=== PATIENT | male | born 1950 | race Caucasian/White ===

== ENCOUNTER → 2023-12-26 11:13 | Outpatient (REF) | payer OTHER, SELFPAY ==
[2023-12-26 13:03] LABS: CEA 2.63 ng/ml
== END ==
LOC: REG 11:13
PROVIDERS: ATTENDING PHYSICIAN Surgery; FAMILY PHYSICIAN Internal Medicine
DX: C18.7 Malignant neoplasm of sigmoid colon (principal)
CPT/HCPCS: 36415; 82378

== ENCOUNTER → 2023-12-31 18:17 | Outpatient (REF) | payer OTHER, SELFPAY | LOC: CLAB 18:17 | PROVIDERS: ATTENDING PHYSICIAN Surgery; FAMILY PHYSICIAN Internal Medicine | DX: C18.7 Malignant neoplasm of sigmoid colon (principal) | CPT/HCPCS: 88305 ==

== ENCOUNTER → 2024-01-05 06:37 | Day surgery (SDC) | payer OTHER, SELFPAY | LOC: GI 06:37 | PROVIDERS: ATTENDING PHYSICIAN Surgery; FAMILY PHYSICIAN Internal Medicine | DX: C18.7 Malignant neoplasm of sigmoid colon (principal); K64.4 Residual hemorrhoidal skin tags; K64.9 Unspecified hemorrhoids; T18.4XXA Foreign body in colon, initial encounter; W44.8XXA Other foreign body entering into or through a natural orifice, initial encounter | CPT/HCPCS: 45378 ==

== ENCOUNTER 2024-01-22 11:08 | Inpatient (IN) | payer OTHER, SELFPAY ==
[2024-01-14 09:50] VITALS: BMI 33.8
[2024-01-14 10:44] LABS: Hematocrit 47.6 % (39.0-52.0); Hemoglobin 15.9 g/dL (13.0-18.0); Mean Corp Hgb Conc. 33.4 g/dL (33.0-37.0); Mean Corpuscular Hgb 28.3 pg (27.0-31.0); Mean Corpuscular Volume 84.8 fL (80.0-94.0); Platelet Count 191 10^3/uL (130-400); Red Blood Cell Count 5.61 10^6/uL (4.70-6.10); Red Cell Dist. Width 15.1 % (11.5-14.5); White Blood Cell Count 7.5 10^3/uL (4.8-10.8)
[2024-01-14 10:58] LABS: INR 1.38; PT 17.1 Sec (11.4-14.6)
[2024-01-14 10:59] LABS: APTT 33.6 Sec (23.4-35.0)
[2024-01-14 11:20] LABS: ALT (SGPT) 28 U/L (0-50); AST (SGOT) 30 U/L (17-59); Albumin 3.9 g/dl (3.5-5.0); Alkaline Phosphatase 92 U/L (38-126); Blood Urea Nitrogen 31 mg/dl (9-20); Calcium 9.7 mg/dl (8.4-10.2); Carbon Dioxide 26 mmol/L (22-30); Chloride 105 mmol/L (98-107); Estimated Creatinine Clearance 59 ml/min; Glucose 106 mg/dl (70-99); Sodium 141 mmol/L (135-145); Total Bilirubin 1.8 mg/dl (0.2-1.3); Total Protein 6.8 g/dl (6.3-8.2); eGFR 49.16
[2024-01-14 12:48] LABS: Glycohemoglobin (HgbA1c) 6.2 % (4.0-5.6)
--- NOTE | 2024-01-14 14:47 | PTCARENOTE ---
Luciana @ Dr. Farrar office notified of patient 01/13 INR 1.38; GFR-49.16
[2024-01-22] VITALS (7 sets, daily range): BP systolic 105–152; BP diastolic 54–79; PULSE 70; BMI 33.8
[2024-01-22] MEDS: TYLENOL 1000 MG PO (11:29)
[2024-01-22] MEDS: LYRICA 150 MG PO (11:29)
[2024-01-22] MEDS: CELEBREX 200 MG PO (11:29)
[2024-01-22] MEDS: ENTEREG 12 MG PO (11:29)
[2024-01-22] MEDS: NORMOSOL-R 1000 IV ×2 (11:30→19:51)
[2024-01-22] MEDS: HEPARIN 5000 UNITS SC (11:30)
--- NOTE | 2024-01-22 19:07 | CON.HOSP ---
Consultation
-
Date/Time Consultation Requested: 01/22/24 7:05PM
Date/Time Consultation Performed: 7:05PM
Requesting Provider: Dr. Hany Kemp
Performing Provider: Dr. Saida Best
Reason for Consultation: medical management post-op
Family Physician
-
Family Physician: Juan Oswald
Chief Complaint
-
post robotic sigmoidectomy
History of Present Illness
Mr. Dennys Peralta is a 73 yo man with hx afib, paroxysmal afib, CAD s/p CABG (11/16), ischemic cardiomyopathy with EF 35%, CKD III, hx CVA post CABG, HLD, BOB, essential HTN who has a diagnosis of both prostate and sigmoid colon cancer and is s/p
robotic sigmoidectomy by Dr. Hany Kemp today.
Patient sees Dr. Pam Ruby and was medically cleared for surgery today.
Patient seen post-op. Per Dr. Kemp, no issues intra-op. He is groggy post anesthesia. He denies pain. He denies chest pain. Denies shortness of breath.
Medical History
Past Medical History
Past Medical History: Reports Other (afib, paroxysmal afib, CAD s/p CABG (11/16), ischemic cardiomyopathy with EF 35%, CKD III, hx CVA post CABG, HLD, BOB, essential HTN)
Past Surgical History: Reports Other (CABG 2012; robotic sigmoidectomy 01/22/24)
Family History
Family History: Reviewed & Not Pertinent
Allergies / Home Medications
Allergies reflects when Allergies were last updated in [facility].
Home Medications with original date entered in [facility]
Allergy/Medication List:
Allergies
Allergy/AdvReac Type Severity Reaction Status Date / Time
No Known Allergies Allergy Verified 01/22/24 11:15
Home Medications
amiodarone 200 mg tablet 200 mg PO DAILY 09/10/18
apixaban 5 mg tablet (Eliquis) 5 mg PO BID 09/10/18
atorvastatin 40 mg tablet 40 mg PO DAILY 09/10/18
carvedilol 6.25 mg tablet 6.25 mg PO BID 09/10/18
furosemide 40 mg tablet 40 mg PO DAILY 09/10/18
pantoprazole 40 mg tablet,delayed release 40 mg PO DAILY 09/10/18
metronidazole 500 mg tablet 500 mg PO PRE OP 01/16/24
neomycin 500 mg tablet 1 g PO PRE OP 01/16/24
sacubitril 49 mg-valsartan 51 mg tablet (Entresto) 1 tab PO BID 01/16/24
sodium sul 1.479 gram-potas ch 0.188 gram-magnes sul 0.225 gram tablet (Sutab) 0 tab PO PRE OP 01/16/24
Review of Systems
-
History Source: Patient
A 12 point Review of Systems was completed except as noted: Yes
Physical Exam
Vital Signs
Vital Signs
Temp Pulse Resp BP Pulse Ox
98 F 66 16 152/79 98
01/22/24 11:21 01/22/24 11:21 01/22/24 11:21 01/22/24 11:21 01/22/24 11:21
Physical Exam
General: No Apparent Distress and Other (patient sedated post anesthesia with oxygen applied; opens eyes to verbal cues and answers questions with yes or no )
HEENT: PERRLA
Respiratory: Clear; Negative Wheezes
Cardiac: S1/S2 and Regular Rhythm
GI: Other (incisions c/d/i)
Skin: Warm and Dry; Negative Rash
Neuro: Sedated
Psych: Calm
Laboratory Results
-
Laboratory Results
01/14/24 09:35
01/14/24 09:35
PT 17.1 Sec (11.4-14.6) H 01/14/24 09:35
INR 1.38 01/14/24 09:35
APTT 33.6 Sec (23.4-35.0) 01/14/24 09:35
Total Bilirubin 1.8 mg/dl (0.2-1.3) H 01/14/24 09:35
AST 30 U/L (17-59) 01/14/24 09:35
ALT 28 U/L (0-50) 01/14/24 09:35
Alkaline Phosphatase 92 U/L (38-126) 01/14/24 09:35
Data Reviewed
-
Diagnostic Radiology: Report Reviewed by Me
Lab Data: Labs Reviewed
Impression / Plan
-
Mr. Dennys Peralta is a 73 yo man with hx paroxysmal afib, CAD s/p CABG (11/16), ischemic cardiomyopathy with EF 35%, CKD III, hx CVA post CABG, HLD, BOB, essential HTN who has a diagnosis of both prostate and sigmoid colon cancer and is s/p
robotic sigmoidectomy by Dr. Hany Kemp today.
Sigmoid Colon Cancer
-admitting to telemetry post-op
-care per CRS
-clears and pills OK
-pain control
Prostate Cancer
Paroxysmal Atrial Fibrillation
-hold Eliquis, resume when OK per CRS
-resume [employer] Coreg
-resume [employer] Amiodarone
Coronary Artery Disease
Hx CABG 10/2017
Ischemic Cardiomyopathy with EF 35%
-resume [employer] Coreg
-monitor on telemetry
-post-op EKG
-hold [employer] Entresto in immediate post-op period
-hold [employer] lasix until diet advanced
-monitor volume status closely
CKD III
-monitor renal status closely
Hx CVA
-resume Eliquis when OK with surgery
HLD
-resume statin when diet resumed
Essential HTN
-resume Coreg
-hold Entresto
--- NOTE | 2024-01-22 19:11 | W.IMMPOSTOP ---
Surgical Immed Post Op Note
-
Primary Surgeon: Hany Kemp MD
Assisting Surgeon: KELLEY Curry
Pre-op Diagnosis: Sigmoid colon cancer
Post-op Diagnosis: Sigmoid colon cancer
Procedure Performed: Robotic sigmoidectomy, lysis of adhesions greater than 30 minutes, mesenteric angiography with ICG, flexible sigmoidoscopy, laparoscopic TAP block
Anesthesia Type: General
Specimen / Cultures: Sigmoid colon, proximal donut (still on anvil), distal donut
IVF: 1.8 L
UOP: 150 mL
Estimated Blood Loss: 50 mL
Complications: None
Operative Findings: Abdomen accessed via Veress needle at Dumont's point, no peritoneal or surface of liver lesions, lysed adhesions from the sigmoid to the left pelvic brim and from the terminal ileum to the right pelvic brim and RLQ; attempted
medial to lateral dissection, but planes difficult to identify due to the adiposity of the mesocolon; took down the lateral attachments of the sigmoid and descending colon midway up the descending colon and mobilized the sigmoid and descending colon
off the retroperitoneum; due to the adiposity of the retroperitoneum, unable to verify the left ureter, but noted a tubular structure in the retroperitoneum that was most likely the ureter and kept this safe; entered the presacral space and
dissected the mesorectum posteriorly just beyond the sacral promontory and superiorly to the ALHAJI; again, due to the adiposity of the mesentery, the ALHAJI was difficult to identify but ultimately was able to identify the ALHAJI taking off from the aorta;
used the robotic stapler with a white load to come across this in a high ligation fashion; freed up more of the mesentery from the retroperitoneum; then dissected the rectosigmoid to just beyond the sacral promontory but above the anterior
reflection; performed flexible sigmoidoscopy and confirmed the location of the clip and the distal tattoo; selected a point 2 to 3 cm distal to the distal tattoo on the rectum and divided with the robotic stapler with a green load; divided the
mesentery to a point on the distal descending colon; performed ICG and discovered that our initial point was ischemic so I selected a transection point a few centimeters proximal and placed a 2-0 Vicryl marking stitch at this point; extracted the
distal colon through the Pfannenstiel and identified the marking stitch; on the ischemic portion, created a colotomy and advanced the anvil with long 2-0 Prolene proximally beyond our transection point; stapled across the distal descending with a
SUKHWINDER 80 with a purple load; pulled through the 2-0 Prolene and seated the anvil at the staple line nicely; cleaned up the intervening mesentery from the staple line; anvil and descending colon was placed back intracorporeally and the abdomen
reinsufflated; passed sizers and then the EEA stapler and performed stapled colorectal EEA stapler anastomosis; negative leak test, intact donuts, intact on flexible sigmoidoscopy; assured hemostasis; performed a laparoscopic tap block injecting 15
mL of Marcaine with dexamethasone bilaterally; closed incisions in usual fashion
[2024-01-22 19:27] LABS: % Basophils 0.2 % (0-2); % Eosinophils 0.1 % (0-6); % Immature Granulocytes 0.3 % (0-0.5); % Lymphocytes 7.1 % (20.5-51.1); % Monocytes 6.7 % (1.7-9.3); % Neutrophils 85.6 % (42.2-75.2); Absolute Lymphocytes 1.1 10^3/uL (1.2-3.4); Absolute Neutrophils 13.3 10^3/uL (1.4-6.5); Hematocrit 42.9 % (39.0-52.0); Hemoglobin 14.4 g/dL (13.0-18.0); Mean Corp Hgb Conc. 33.6 g/dL (33.0-37.0); Mean Corpuscular Hgb 28.2 pg (27.0-31.0); Mean Corpuscular Volume 84.1 fL (80.0-94.0); Mean Platelet Volume 9.4 fL (7.4-10.4); Nucleated Red Blood Cells % 0 % (-); Platelet Count 169 10^3/uL (130-400); White Blood Cell Count 15.6 10^3/uL (4.8-10.8)
[2024-01-22 19:36] LABS: Blood Urea Nitrogen 30 mg/dl (9-20); Calcium 8.4 mg/dl (8.4-10.2); Carbon Dioxide 18 mmol/L (22-30); Chloride 109 mmol/L (98-107); Estimated Creatinine Clearance 59 ml/min; Glucose 123 mg/dl (70-99); Magnesium 2.6 mg/dl (1.6-2.3); Potassium 4.3 mmol/L (3.5-5.1); Sodium 137 mmol/L (135-145); eGFR 49.16
--- NOTE | 2024-01-22 19:36 | OR.RPT ---
Operative Report
Operative Report
DATE OF OPERATION: 01/23/2024
SURGEON: Hany Kemp MD
PREOPERATIVE DIAGNOSIS: Malignant polyp of sigmoid
POSTOPERATIVE DIAGNOSIS: Malignant polyp of sigmoid
OPERATION: Robotic sigmoidectomy, adhesiolysis greater than 30 minutes, mesenteric angiography with ICG, flexible sigmoidoscopy, laparoscopic TAP block
ASSISTANTS:
1. Giacomo BENSON
ANESTHESIA: General
ESTIMATED BLOOD LOSS: 50 mL
IVF: 1.8 L
URINE OUTPUT: 150 mL
FINDINGS:
1. No concerning peritoneal lesions or lesions on the surface of the liver noted
2. Identified proximal and distal tattoo; divided distally 2 to 3 cm below distal tattoo; performed EEA stapled anastomosis; negative leak test, intact donuts x 2, anastomosis intact on flexible sigmoidoscopy
SPECIMENS:
1. Sigmoid colon
2. Proximal donut on anvil
3. Distal donut
DRAINS: None
COMPLICATIONS: No immediate complications.
INDICATIONS: The patient is a 73-year-old male who was recently discovered to have prostate cancer in Sep 2023. Prior to undergoing radiation therapy, he was recommended to undergo a colonoscopy. On 12/04/23, he underwent a colonoscopy with the
discovery of a 2.5 cm polyp in the mid sigmoid. An EMR and piecemeal removal of the polyp was performed, which came back moderately differentiated adenocarcinoma, RUDDY, tumor at the margins. After a tumor board discussion, the decision was made to
move forward with colectomy for the colon cancer, and eventual low-dose radiation with brachytherapy for the prostate cancer. The operation was discussed with the patient in detail, including the risks, benefits and alternatives. Risks described
included, but not limited to, bleeding, infection, anastomotic leak, damage to nearby structures (i.e.- ureter, bowel, solid organs), incisional hernia, need for ostomy creation, conversion to open, inability to remove the entire cancer, recurrence
or metastasis and anesthetic risks, including but not limited to VA, stroke, DVT/PE and respiratory failure. The patient understood and agreed to proceed.
PROCEDURE IN DETAIL: The patient was taken to the operating room and placed on the operating table in supine position. Sequential compression devices were placed bilaterally. General anesthesia was then induced and the patient was intubated without
complication. The patient was then placed in lithotomy position with both arms tucked. Del Real catheter was placed with sterile technique. The abdomen was then shaved, prepped and draped in a sterile fashion. A time-out was then performed verifying
the correct patient, procedure, operative site, positioning, and special equipment. Anesthesia placed an orogastric tube. Preoperative antibiotics were given. A marking pen was used to daya out the midline.
An 8 mm incision at Dumont's point was made with an 11 blade scalpel. A Veress needle was used to gain abdominal access. After 3 clicks, the insufflation was connected to the Veress needle and the opening pressure was noted to be less than 8 mmHg.
The abdomen was then insufflated to a pressure of 12 mmHg. An 8 mm robotic trocar was then inserted. The robotic camera was advanced and intra-abdominal placement was confirmed. The abdomen was examined. No injuries were noted from port entry or
from the Veress needle. No concerning lesions were noted on the surface of the liver or the peritoneum. The tattoo of the sigmoid was not immediately visible. The remaining three 8mm robotic ports were placed under direct visualization in a
diagonal fashion from Dumont's point to the right lower quadrant, as well as an 8mm assist port in the right lateral mid abdomen, taking care to avoid injury to the right epigastric vessels. The left upper quadrant port was changed to the air seal
port.
A 4 cm Pfannenstiel incision was created 2 fingerbreadths above the pubic symphysis. This was carried down to the anterior fascia with electrocautery and hemostasis was assured. The fascia was then incised to just beyond the length of the skin
incision. The fascia was grasped with Macarena's and elevated. The adhesions to the anterior fascia were taken down bluntly from the rectus abdominis muscle and the midline attachment was taken down with electrocautery. This was performed both
superiorly and inferiorly to our incision. The rectus was then split along the midline, first scoring the linea alba with electrocautery, then bluntly spitting with a Ngoc clamp to reveal the peritoneum, which was grasped and elevated with Kellys.
The peritoneum was then incised with Metzenbaum scissors, taking care to avoid injury to intraperitoneal structures. The peritoneum was then incised cranially and caudally to the greatest extent that our incision would allow, taking care to avoid
injury to the bladder. A small Tim with port cap was placed and a robotic 12 mm port was placed through the port cap. Then, the patient was placed in 25 degrees trendelenburg and 14 degrees [id number] (due to the tucking of the arms,
neutral was at about 4 degrees [id number]). The robot was docked from the patient's right side. From the RLQ to Dumont's point, the instruments introduced were the scissers, camera, bipolar grasper, and tip up grasper, respectively.
The small bowel was retracted out of the pelvis and towards the right upper quadrant. Some adhesions were noted from the left pelvic sidewall to the sigmoid colon, which were taken down with electrocautery. Additionally, there were adhesions from
the terminal ileum to the right pelvic brim/RLQ, which were taken down with a combination of electrocautery and scissors. The sigmoid was then grasped and elevated to commence a medial to lateral dissection. The peritoneum overlying the sacral
promontory was scored and entered. Due to the amount of adiposity in the retroperitoneum, it was difficult to obtain the correct plane. Therefore, I turned to a lateral to medial approach. I retracted the sigmoid towards the RUQ and mobilized the
mesocolon from the retroperitoneum, taking care to avoid injury to the kidney and left ureter. Again, due to the adiposity in the retroperitoneum, the left ureter was difficult to confirm, but a tubular structure was identified that was most likely
the left ureter and this was kept safe from the dissection. I continued this mobilization up to the proximal descending colon. I turned back to the medial to lateral approach. I was able to identify the presacral space and connected this to my
lateral dissection. I continued the dissection inferiorly, posteriorly to the rectum in the presacral plane, and took this to just beyond the sacral promontory, taking care to avoid injury to the hypogastric nerves. I used the vessel sealer to
connect the posterior dissection to the right lateral dissection in order to further mobilize the rectosigmoid junction. I retracted the rectosigmoid junction to the patient's right, and then scored the left lateral peritoneum and used the vessel
sealer to divide the lateral stalk to the same point as my right lateral dissection. Then, I took this dissection up to the ALHAJI pedicle, which was difficult to identify due to the amount of adiposity in the retroperitoneum and mesocolon. However,
I was able to elevate this and identify its takeoff from the aorta. Due to the thickness of the ALHAJI and likely calcifications, I elected to divide the ALHAJI with a white load of the robotic stapler. I upsized the RLQ port to a 12 mm port and divided
the ALHAJI close to its takeoff. The ALHAJI stump was completely hemostatic. I mobilized some more mesentery from the retroperitoneum, connecting to my previous lateral dissection. I encountered an additional vessel in the mesentery close to the divided
ALHAJI pedicle, which appeared to be the IMV. It was placing tension on my potential proximal transection point. Therefore, I divided this with the vessel sealer.
I then turned my attention to the distal transection point. While my assistant to the director placed traction on the rectosigmoid, I went below and advanced a flexible sigmoidoscopy to locate the distal tattoo. I was able to identify the clip placed at the
location of the polypectomy site as well as the distal tattoo. I confirmed a point on the rectum that was about 2 to 3 cm distal to the distal tattoo on the proximal rectum. I removed the flexible sigmoidoscopy and went back on the robotic
console. I retracted the rectosigmoid anteriorly again, and then created a tunnel through the mesorectum at my proposed transection point on the rectum, which was at about 14-15 cm proximal to the anal verge. I divided the mesorectum with the
vessel-sealer. I divided the rectum with the green load of the 60 mm robotic stapler.
For my proximal transection point, I assessed the sigmoid and distal descending colon. I selected a point about 5�7cm proximal to the proximal tattoo. I elevated the colon at this point with my tip up grasper. I fanned out the mesentery from the
divided ALHAJI stump. I ligated the mesentery from this spot to my transection point on the the descending colon. I elected to proceed with an end-to-end stapled anastomosis with EEA stapler, but would extracorporealize the specimen prior to division
to secure the anvil. I asked anesthesia to inject 2.5 mg of ICG. My elected transection point did appear ischemic, so moved 3 to 4 cm proximal where there was good perfusion and cleared up the mesentery at this point. I placed a 2-0 Vicryl marking
stitch at this point. I then undocked 2 arms and removed the port cap. Due to the bulk of the colon and mesentery, I lengthened the Pfannenstiel incision to 6 cm. I pulled the sigmoid and descending colon through the Pfannenstiel incision. I
identified my marking stitch, cleared up the mesentery at this point and then created a colotomy more distal in the devascularized segment. I advanced the anvil with a long 2-0 Prolene secured to the tip through the colotomy and beyond the proximal
transection point. I closed the colotomy using Allis clamps. I then divided at my proximal transection point with the SUKHWINDER 80 mm stapler with purple load. I grasped the Prolene stitch and pulled the anvil through the staple line. The sigmoid
colon was passed off as specimen. I cleaned up the staple line from intervening mesentery and fat. The anvil was seated along the staple line nicely without intervening diverticula or mesentery. This was then placed back intracorporeally. The
port cap was replaced, the abdomen insufflated and the robot redocked.
I checked the reach of the proposed anastomosis and it was more than adequate. The operative field was surveyed and hemostasis was ensured. Then, sizers were passed up the rectum to ensure adequate circumference and length. There was a small ooze
from the rectal staple line on the mesenteric aspect, which was easily controlled with the bipolar grasper. The EEA stapler was passed transanally to the distal staple line. The pin was extended and was connected with the anvil. After ensuring
there was no twist to the mesentery and there was no tension, the EEA stapler was then closed for 1 minute and then fired. Both donuts were intact. A leak test was performed by filling the pelvis with saline, occluding the proximal lumen and
insufflating with the flexible sigmoidoscope. There was no evidence of leak from the anastomosis. Endoscopically, the anastomosis was intact without evidence of bleeding. The colorectum was desufflated and the flexible sigmoidoscope removed. The
donuts were passed off as specimen.
The robotic instruments were removed and the robot was undocked. Using laparoscopic visualization, a TAP block was performed using a total of 30 mL of 0.25% Marcaine mixed with dexamethasone and injecting in the transverse abdominis plane
bilaterally. The right lower quadrant 12mm port was closed with a Esteban-Hough and an 0-vicryl. The remaining ports were removed under direct visualization and no bleeding was noted. The Pfannenstiel incision was then closed in layers. First,
the peritoneum was closed with a running 0-Vicryl stitch. Then, the anterior fascia was closed using a #1 Stratafix suture. The incisions were then irrigated. Another 30 cc of 0.25% Marcaine mixed with dexamethasone were injected around the
incisions. The incisions were then closed with running subcuticular 4-0 Monocryl and dressed with Dermabond.
At this point, the procedure was complete. The patient was awoken and extubated without complication. All needle, sponge and instrument counts were reported as correct. The patient tolerated the procedure well and was transferred to the recovery
room in stable condition with the Del Real in place.
DICTATED BY: Hany Kemp MD
[2024-01-22] MEDS: DILAUDID 0.25 MG IV (19:52)
--- NOTE | 2024-01-22 20:18 | PTCARENOTE ---
Patient arrived from PACU @20:18 on 3L O2, IVF infusing, cruz catheter with elizabeth/yellow urine, VSS; patient placed on telemetry and continous pulse ox; admission history completed with patient; RT will deliver CPAP.
[2024-01-22] MEDS: COREG 6.25 MG PO (21:30)
[2024-01-23] VITALS (8 sets, daily range): BP systolic 99–149; BP diastolic 53–85; PULSE 77; O2SAT 98; BMI 33.8
[2024-01-23] MEDS: TYLENOL 1000 MG PO ×4 (00:32→18:12)
[2024-01-23 05:19] LABS: % Immature Granulocytes 0.3 % (0-0.5); % Lymphocytes 4.6 % (20.5-51.1); % Monocytes 3.3 % (1.7-9.3); % Neutrophils 91.8 % (42.2-75.2); Absolute Lymphocytes 0.6 10^3/uL (1.2-3.4); Absolute Monocytes 0.4 10^3/uL (0.1-0.6); Absolute Neutrophils 11.6 10^3/uL (1.4-6.5); Hematocrit 40.3 % (39.0-52.0); Hemoglobin 13.6 g/dL (13.0-18.0); Mean Corp Hgb Conc. 33.7 g/dL (33.0-37.0); Mean Corpuscular Hgb 28.2 pg (27.0-31.0); Mean Corpuscular Volume 83.4 fL (80.0-94.0); Mean Platelet Volume 9.5 fL (7.4-10.4); Nucleated Red Blood Cells % 0 % (-); Platelet Count 144 10^3/uL (130-400); Red Blood Cell Count 4.83 10^6/uL (4.70-6.10); Red Cell Dist. Width 15.3 % (11.5-14.5); White Blood Cell Count 12.6 10^3/uL (4.8-10.8)
[2024-01-23 05:50] LABS: Blood Urea Nitrogen 32 mg/dl (9-20); Calcium 7.7 mg/dl (8.4-10.2); Carbon Dioxide 19 mmol/L (22-30); Chloride 105 mmol/L (98-107); Estimated Creatinine Clearance 64 ml/min; Glucose 129 mg/dl (70-99); Magnesium 2.8 mg/dl (1.6-2.3); Potassium 4.4 mmol/L (3.5-5.1); Sodium 138 mmol/L (135-145)
[2024-01-23] MEDS: COREG 6.25 MG PO ×2 (09:22→22:49)
[2024-01-23] MEDS: LIPITOR 40 MG PO (09:23)
[2024-01-23] MEDS: PACERONE 200 MG PO (09:23)
[2024-01-23] MEDS: PROTONIX 40 MG PO (09:23)
[2024-01-23] MEDS: ENTEREG 12 MG PO ×2 (09:23→19:45)
--- NOTE | 2024-01-23 09:54 | CON.CAR ---
Addendum entered and electronically signed by Mikel Love MD 01/23/24 12:32:
Pleasant 73-year-old man who underwent a robotic sigmoid colectomy on 523. We are asked to review for postoperative management. Currently sitting in chair, with daughter at bedside, offers no complaints, diet currently being advanced
PMH: CABG 2018, MRI conditional [employer] ICD, ischemic cardiomyopathy EF 35%, paroxysmal atrial fibrillation on amiodarone, CKD stage III, remote CVA, hypercholesterolemia, hypertension, prediabetes, sleep apnea, prostate cancer with recent
positive biopsy.
PSH: As above
SH:
Allergies none
Outpatient medications reviewed
ROS: Negative except as above
140/68, pulse 74, respiratory rate 18, afebrile
Pleasant no distress, head neck exam unremarkable, lungs clear, regular rate and rhythm,No murmurs JVD okay, abdomen obese, extremities without edema, Cruz in place
White count 12.6, hemoglobin 13.6, BUN and creatinine 32 and 1.4, potassium 4.4
Postop EKG AV paced with biventricular ICD
Assessment:
Rectosigmoid colon mass status post robotic sigmoid colectomy with lysis of adhesions 01/22/24
Leukocytosis
Prostate cancer
Paroxysmal atrial fibrillation
Chronic amiodarone therapy
Chronic Eliquis therapy
Ischemic dilated cardiomyopathy with EF 35%
Status post [employer] ICD, MRI conditional
CAD status post CABG x 4 in 2018
CKD stage III
History of rectal bleeding
history of stroke
Dyslipidemia
Hypertension
Prediabetes
BOB
Echo 05/20/2023: EF 35%, mild global hypokinesis, moderate to severe hypokinesis in the basal to mid posterior lateral wall and mid inferior wall and inferoseptum, Definity used, trace MR, trace TR, PAP 20 to 24 mmHg
Plan:
He appears stable from a cardiac standpoint. As he progresses we will restart Entresto, Eliquis as blood pressure and postoperative status permits.
From cardiac standpoint will likely be ready for discharge in 24 to 48 hours. Okay to proceed with discharge planning.
Original Note:
Consultation
Consultation Request
Date/Time Consultation Performed: 01/23/24
Requesting Provider: Dr. Kemp
Performing Provider: Sherry Steel PA-C for Dr. KAYLA Love
Reason for Consultation: post op mgmt
Medical History
-
Chief Complaint: robotic colectomy, sigmoid colon mass
History of Present Illness:
Patient is a 73-year-old male with past medical history of paroxysmal atrial fibrillation maintained on chronic Coreg, amiodarone, Eliquis, ischemic dilated cardiomyopathy with EF 35% status post [employer] ICD, MRI conditional, CAD status
post CABG x 4 in 2018, CKD stage III, history of rectal bleeding, history of stroke, dyslipidemia, BOB, prediabetes, hypertension. He had elevated PSA and underwent prostate biopsy positive for cancer. He then underwent colonoscopy prior to
radiation therapy for prostate cancer which showed evidence of rectosigmoid cancer. He underwent robotic sigmoid colectomy 01/22/2024. Cardiology consulted for assistance with postoperative management. He is feeling well without complaints of
chest pain, shortness of breath. Reports his pain is manageable. EKG AV paced rhythm
PMH:
Prostate cancer
Paroxysmal atrial fibrillation
Chronic amiodarone therapy
Chronic Eliquis therapy
Ischemic dilated cardiomyopathy with EF 35%
Status post [employer] ICD, MRI conditional
CAD status post CABG x 4 in 2018
CKD stage III
History of rectal bleeding
history of stroke
Dyslipidemia
Hypertension
Prediabetes
BOB
Past Medical History
Past Medical History: Other (in HPI)
Social History
Tobacco: Non-Smoker
Allergies / Home Medications
Allergy/AdvReac Type Severity Reaction Status Date / Time
No Known Allergies Allergy Verified 01/22/24 11:15
�Medication �Instructions �Recorded �Confirmed �Type
amiodarone 200 mg tablet 200 mg PO DAILY 09/10/18 01/22/24 History
apixaban 5 mg tablet (Eliquis) 5 mg PO BID 09/10/18 01/22/24 History
atorvastatin 40 mg tablet 40 mg PO DAILY 09/10/18 01/22/24 History
carvedilol 6.25 mg tablet 6.25 mg PO BID 09/10/18 01/22/24 History
furosemide 40 mg tablet 40 mg PO DAILY 09/10/18 01/22/24 History
pantoprazole 40 mg tablet,delayed 40 mg PO DAILY 09/10/18 01/22/24 History
release
metronidazole 500 mg tablet 500 mg PO PRE OP 01/16/24 01/22/24 History
neomycin 500 mg tablet 1 g PO PRE OP 01/16/24 01/22/24 History
sacubitril 49 mg-valsartan 51 mg 1 tab PO BID 01/16/24 01/22/24 History
tablet (Entresto)
sodium sul 1.479 gram-potas ch 0 tab PO PRE OP 01/16/24 01/22/24 History
0.188 gram-magnes sul 0.225 gram
tablet (Sutab)
Review of Systems
-
History Source: Patient
All other systems: Negative unless noted
Physical Exam
Vital Signs
Temp Pulse Resp BP Pulse Ox
97.6 F 74 18 140/68 96
01/23/24 07:00 01/23/24 07:00 01/23/24 07:00 01/23/24 07:00 01/23/24 07:00
Lab Results
01/23/24 04:41
01/23/24 04:41
Physical Exam
General: No Apparent Distress, Comfortable and Other (sitting in chair. obese)
HEENT: Normocephalic, Anicteric and Moist Mucous Membranes
Respiratory: Clear and Non Labored Respirations
Cardiac: S1/S2 and Regular Rhythm
GI: Soft, Non Tender and Other (hypoactive bowel sounds)
Genito-urinary: Other (cruz)
Musculoskeletal: No Clubbing, No Cyanosis and No Edema
Skin: Warm and Dry
Neuro: AO x 3
Impression / Plan
-
Primary Inside Trucker: Dr. Ruby
Assessment:
Rectosigmoid colon mass status post robotic sigmoid colectomy with lysis of adhesions 01/22/24
Leukocytosis
Prostate cancer
Paroxysmal atrial fibrillation
Chronic amiodarone therapy
Chronic Eliquis therapy
Ischemic dilated cardiomyopathy with EF 35%
Status post [employer] ICD, MRI conditional
CAD status post CABG x 4 in 2018
CKD stage III
History of rectal bleeding
history of stroke
Dyslipidemia
Hypertension
Prediabetes
BOB
Echo 05/20/2023: EF 35%, mild global hypokinesis, moderate to severe hypokinesis in the basal to mid posterior lateral wall and mid inferior wall and inferoseptum, Definity used, trace MR, trace TR, PAP 20 to 24 mmHg
Plan:
-Patient is status post robotic sigmoid colectomy 01/22/2024
-Doing well. No complaints of chest pain, shortness of breath
-In AV paced rhythm on review of telemetry. Continue outpatient Coreg and amiodarone. QTc is slightly more prolonged compared to preop EKG, will repeat in a.m. and follow
-Outpatient Eliquis on hold with recent surgery. Would resume when okay per surgical team
-Follow blood pressure trends. Would resume Entresto and outpatient Lasix as blood pressure tolerates in next 24 to 48 hours. Creatinine stable at 1.4. Without evidence of volume overload at present
-Echocardiogram from 2022 with results as above, EF 35%
-Hemoglobin stable
-Continue postoperative care
-Out of bed/IS encouraged
Data Reviewed
-
EKG: Tracing Personally Visualized and interpreted
Medical Tests (Nuc Med, Echo etc): Report Reviewed by me
Labs: Labs Reviewed by me
Old Records: Reviewed
--- NOTE | 2024-01-23 09:56 | W.PN.CRS1 ---
Today's Communication / Plan
-
regular
d/c cruz
oob
lovenox
Assessment/Plan
-
Robotic sigmoidectomy
1. Vitals and labs normal.
2. OOB as tolerated.
3. Okay to shower.
4. Start Lovenox tonight for DVT prophylaxis.
5. D/C cruz.
6. Advance diet to regular.
7. Continue to hold Eliquis until Friday, then can resume.
8. OR pathology pending.
9. Pain medication: Tylenol standing, Dilaudid PRN.
10. Possible d/c tomorrow if doing well.
Subjective Data
Procedure
01/22/2024-, lysis of adhesions greater than 30 minutes, mesenteric angiography with ICG, flexible sigmoidoscopy, laparoscopic TAP block
Subjective Data
Date of Service: January 23, 2024
Patient states he feels well this morning. He has been walking around the [employer]. He denies nausea or vomiting. He has been drinking clears. He has minimal pain. He denies nausea or vomiting.
Objective Data
-
Vital Signs
Temp Pulse Resp BP Pulse Ox
97.6 F 74 18 140/68 96
01/23/24 07:00 01/23/24 07:00 01/23/24 07:00 01/23/24 07:00 01/23/24 07:00
Intake & Output
01/22/24 01/23/24 01/24/24
06:59 06:59 06:59
Intake Total 890 / 890
Output Total 880 / 880
Balance
Intake:
Oral fluids 240 / 240
IV fluids (Total) 650 / 650
normosol 150 / 150
Output:
Urine, Cruz 880 / 880
Lab Results
01/23/24 04:41
01/23/24 04:41
Physical Exam
-
General: No Acute Distress and AOx3
Abdomen: Soft, Non Distended and Non Tender
Skin: Warm and Dry
Incision: Clear, Dry, Intact
--- NOTE | 2024-01-23 10:13 | W.PN.HOSP.TC ---
Today's Communication/Plan
-
Resume Lasix
Hold Entresto - start in 24-48 hours
Restart Eliquis once OK by surgery
ADAT
Assessment / Plan
Assessment / Plan
General: No Apparent Distress
HEENT: PERRLA
Respiratory: Clear; Negative Wheezes
Cardiac: S1/S2 and Regular Rhythm
GI: Other (incisions c/d/i)
Skin: Warm and Dry; Negative Rash
Neuro: Sedated
Psych: Calm
Mr. Dennys Peralta is a 73 yo man with hx paroxysmal afib, CAD s/p CABG (11/16), ischemic cardiomyopathy with EF 35%, CKD III, hx CVA post CABG, HLD, BOB, essential HTN who has a diagnosis of both prostate and sigmoid colon cancer and is s/p
robotic sigmoidectomy by Dr. Hany Kemp 01/21.
Sigmoid Colon Cancer
-care per CRS
-clears and pills OK; advance as tolerated by surgery
-pain control
Prostate Cancer
Paroxysmal Atrial Fibrillation
-hold Eliquis, resume when OK per CRS
-Coreg
-Amiodarone
Coronary Artery Disease
Hx CABG 10/2017
Ischemic Cardiomyopathy with EF 35%
-Coreg
-monitor on telemetry
-post-op EKG
-hold NURSES AIDE Entresto in immediate post-op period - possible restart 24-48 hours
-Restart Lasix today
-monitor volume status closely
CKD III
-monitor renal status closely
Hx CVA
-resume Eliquis when OK with surgery
HLD
-resume statin when diet resumed
Essential HTN
-resume Coreg
-hold Entresto 24-48 hours
SCDs - Start Eliquis once OK by Surgery
Anticipated Discharge: 24 - 48 hours
Subjective/Interval History
-
Date of Service: January 23, 2024
No acute events, tolerating clear liquid diet
Objective Data
-
Labs:
Laboratory Results
01/23/24
04:41
WBC 12.6 H
Hgb 13.6
Hct 40.3
Plt Count 144
Sodium 138
Potassium 4.4
Chloride 105
Carbon Dioxide 19 L
BUN 32 H
Creatinine 1.4 H
Glucose 129 H
Calcium 7.7 L
Vital Signs:
Vital Signs
Temp Pulse Resp BP Pulse Ox
97.6 F 74 18 140/68 96
01/23/24 07:00 01/23/24 07:00 01/23/24 07:00 01/23/24 07:00 01/23/24 07:00
I&O
01/22/24 01/23/24 01/24/24
06:59 06:59 06:59
Intake Total 890 / 890
Output Total 880 / 880
Balance
Review of Systems
-
History Source: Patient
All other systems: Not reviewed unless documented
Data Reviewed
-
Diagnostic Radiology: Image personally visualized and interpreted and Report Reviewed by me
--- NOTE | 2024-01-23 12:17 | CM ---
Met patient and dgtr in room. Patient independent in home and community. He drives . He does not expect to need any services at discharge. He lives alone in multi level home. He walked the unit with PT today without device.
Plan is to take out cruz Friday.
PCP Dr. Juan Oswald
PHarmacy: [facility].
Dgtr is very supportive and lives close by.
PLAN:Home no needs.
[2024-01-23] MEDS: LASIX 40 MG PO (12:48)
[2024-01-23] MEDS: NORMOSOL-R IV (12:48)
[2024-01-23] MEDS: HEPARIN 5000 UNITS SC (19:46)
[2024-01-24] MEDS: TYLENOL PO ×2 (02:22→07:00)
[2024-01-24 05:22] LABS: Hematocrit 36.5 % (39.0-52.0); Hemoglobin 12.6 g/dL (13.0-18.0); Mean Corp Hgb Conc. 34.5 g/dL (33.0-37.0); Mean Corpuscular Hgb 28.2 pg (27.0-31.0); Mean Corpuscular Volume 81.7 fL (80.0-94.0); Mean Platelet Volume 9.6 fL (7.4-10.4); Platelet Count 133 10^3/uL (130-400); Red Blood Cell Count 4.47 10^6/uL (4.70-6.10); Red Cell Dist. Width 15.5 % (11.5-14.5); White Blood Cell Count 11.4 10^3/uL (4.8-10.8)
[2024-01-24 05:48] LABS: Blood Urea Nitrogen 40 mg/dl (9-20); Calcium 8.3 mg/dl (8.4-10.2); Carbon Dioxide 23 mmol/L (22-30); Chloride 104 mmol/L (98-107); Estimated Creatinine Clearance 56 ml/min; Glucose 104 mg/dl (70-99); Potassium 3.8 mmol/L (3.5-5.1); Sodium 137 mmol/L (135-145)
[2024-01-24 06:00] VITALS: BMI 33.5
[2024-01-24 07:25] VITALS: BP 129/70
[2024-01-24] MEDS: PROTONIX 40 MG PO (08:02)
[2024-01-24] MEDS: ENTEREG 12 MG PO (08:02)
[2024-01-24] MEDS: PACERONE 200 MG PO (08:02)
[2024-01-24] MEDS: LIPITOR 40 MG PO (08:02)
[2024-01-24] MEDS: LASIX 40 MG PO (08:02)
[2024-01-24] MEDS: HEPARIN 5000 UNITS SC (08:03)
[2024-01-24] MEDS: COREG 6.25 MG PO (08:09)
--- NOTE | 2024-01-24 11:57 | W.PN.CARDCBS ---
Today's Communication / Plan
-
Okay for discharge from cardiac standpoint
Follow-up arrangements in place
Please check BMP in 1 week
See below for meds
Impression / Plan
-
Primary Robotic Weld Technician: Dr. Ruby
Assessment:
Rectosigmoid colon mass status post robotic sigmoid colectomy with lysis of adhesions 01/22/24
Leukocytosis
Prostate cancer
Paroxysmal atrial fibrillation
Chronic amiodarone therapy
Chronic Eliquis therapy
Ischemic dilated cardiomyopathy with EF 35%
Status post [employer] ICD, MRI conditional
CAD status post CABG x 4 in 2018
CKD stage III
History of rectal bleeding
history of stroke
Dyslipidemia
Hypertension
Prediabetes
BOB
Echo 05/20/2023: EF 35%, mild global hypokinesis, moderate to severe hypokinesis in the basal to mid posterior lateral wall and mid inferior wall and inferoseptum, Definity used, trace MR, trace TR, PAP 20 to 24 mmHg
Plan:
He looks well, and okay to proceed with discharge planning from cardiac standpoint.
He is on most of his preadmission medications. Not yet restarted - Entresto and Eliquis.
Restart Eliquis when okay from surgical standpoint.
I would restart Entresto on January 26.
Would not object to discharge later today or tomorrow if okay from surgical standpoint.
Recommended cardiac medications at discharge:
Amiodarone 200 mg a day
Atorvastatin 40 mg a day
Carvedilol 6.25 mg twice daily
Eliquis 5 mg twice daily when okay with surgery
Furosemide 40 mg a day
Entresto 49/51 twice daily starting on January 26
Please check BMP in 1 week
Cardiac follow-up in place
Progress Note - Robotic Weld Technician
Subjective
Date of Service: January 24, 2024:
PMH/PSH/SH/FH: Reviewed
Allergies: None
Outpatient medications: Reviewed, carvedilol 6.25 twice daily, amiodarone 200 mg a day, atorvastatin 40 mg a day, Eliquis 5 mg twice daily, furosemide 40 mg a day, Entresto twice daily
Current medications carvedilol 6.25 twice daily, amiodarone 200 mg a day, atorvastatin 40 mg a day, furosemide 40 mg a day, subcu heparin, Entresto and Eliquis are currently on hold
ROS: Negative except as above
129/70, pulse 72, afebrile sats 96% weight is 115.3 kg, down 0.8 kg
No distress, head neck exam unremarkable, lungs are clear, regular rate and rhythm without murmurs JVD okay, abdomen benign, trace to 1+ edema, neuro nonfocal, musculoskeletal intact
White count is 11.4, hemoglobin 12.6, BUN and creatinine are 40 and 1.6, creatinine had been 1.4-1.5
Objective
Labs:
01/24/24 04:38
01/24/24 04:38
Labs
Hgb 12.6 g/dL (13.0-18.0) L 01/24/24 04:38
Hct 36.5 % (39.0-52.0) L 01/24/24 04:38
Plt Count 133 10^3/uL (130-400) 01/24/24 04:38
PT 17.1 Sec (11.4-14.6) H 01/14/24 09:35
INR 1.38 01/14/24 09:35
APTT 33.6 Sec (23.4-35.0) 01/14/24 09:35
Sodium 137 mmol/L (135-145) 01/24/24 04:38
Potassium 3.8 mmol/L (3.5-5.1) 01/24/24 04:38
BUN 40 mg/dl (9-20) H 01/24/24 04:38
Creatinine 1.6 mg/dL (0.7-1.3) H 01/24/24 04:38
Glucose 104 mg/dl (70-99) H 01/24/24 04:38
Vital Signs and I&O:
Vital Signs
Temp Pulse Resp BP Pulse Ox
36.3 C 72 16 129/70 96
01/24/24 07:25 01/24/24 07:25 01/24/24 07:25 01/24/24 07:25 01/24/24 07:56
Vital Signs
Temp Pulse Resp BP Pulse Ox
36.3 C 72 16 129/70 96
01/24/24 07:25 01/24/24 07:25 01/24/24 07:25 01/24/24 07:25 01/24/24 07:56
Intake & Output
01/22/24 01/23/24 01/24/24 01/25/24
07:59 07:59 07:59 07:59
Intake Total 890 / 890 830 / 830
Output Total 880 / 880 1460 / 1460
Balance - / -630
Physical Exam
Physical Exam
See above
[2024-01-24] MEDS: TYLENOL 1000 MG PO (12:02)
--- NOTE | 2024-01-24 12:38 | W.PN.HOSP.TC ---
Today's Communication/Plan
-
restart entresto within 24 hours; restart Eliquis as per surgery
rest of care including dc planning, per surgery
Assessment / Plan
Assessment / Plan
General: No Apparent Distress
HEENT: PERRLA
Respiratory: Clear; Negative Wheezes
Cardiac: S1/S2 and Regular Rhythm
GI: Other (incisions c/d/i)
Skin: Warm and Dry; Negative Rash
Neuro: Sedated
Psych: Calm
Mr. Dennys Peralta is a 73 yo man with hx paroxysmal afib, CAD s/p CABG (11/16), ischemic cardiomyopathy with EF 35%, CKD III, hx CVA post CABG, HLD, BOB, essential HTN who has a diagnosis of both prostate and sigmoid colon cancer and is s/p
robotic sigmoidectomy by Dr. Hany Kemp 01/21.
Sigmoid Colon Cancer
-care per CRS
-clears and pills OK; advance as tolerated by surgery
-pain control
Prostate Cancer
Paroxysmal Atrial Fibrillation
-hold Eliquis, resume when OK per CRS
-Coreg
-Amiodarone
Coronary Artery Disease
Hx CABG 10/2017
Ischemic Cardiomyopathy with EF 35%
-Coreg
-monitor on telemetry
-post-op EKG
-hold CYTOLOGY TECHNOLOGIST Entresto in immediate post-op period - possible restart 24-48 hours
-Restarted Lasix
-monitor volume status closely
CKD III
-monitor renal status closely
Hx CVA
-resume Eliquis when OK with surgery
HLD
-resume statin when diet resumed
Essential HTN
-resume Coreg
-hold Entresto 24 hours
SCDs - Start Eliquis once OK by Surgery; HSQ for now
Anticipated Discharge: Within 24 hours
Subjective/Interval History
-
Date of Service: January 24, 2024
tolerating diet, some loose bms
Objective Data
-
Labs:
Laboratory Results
01/24/24
04:38
WBC 11.4 H
Hgb 12.6 L
Hct 36.5 L
Plt Count 133
Sodium 137
Potassium 3.8
Chloride 104
Carbon Dioxide 23
BUN 40 H
Creatinine 1.6 H
Glucose 104 H
Calcium 8.3 L
Vital Signs:
Vital Signs
Temp Pulse Resp BP Pulse Ox
97.4 F 72 16 129/70 96
01/24/24 07:25 01/24/24 07:25 01/24/24 07:25 01/24/24 07:25 01/24/24 07:56
I&O
01/23/24 01/24/24 01/25/24
06:59 06:59 06:59
Intake Total 890 / 890 830 / 830
Output Total 880 / 880 1460 / 1460
Balance -630 / -630
Review of Systems
-
History Source: Patient
All other systems: Not reviewed unless documented
Data Reviewed
-
Diagnostic Radiology: Image personally visualized and interpreted and Report Reviewed by me
--- NOTE | 2024-01-24 14:06 | W.PN.CRS1 ---
Addendum entered and electronically signed by Justus Gutierrez MD 01/24/24 14:45:
I saw and examined the patient.
The Soda Drier Feeder's note was reviewed and I agree with the note.
Comment: No complaints, meets criteria for DC. Exam approp, incisions cdi. He will stay with daughter courtney as a precaution.
Original Note:
Today's Communication / Plan
-
Dispo planning
Assessment/Plan
-
73-year-old male with PMH of A-fib (on Eliquis�holding), ICM (EF 35%), CAD (s/p CABG C/B CVA and 2018), CKD stage III, HLD, HTN, BOB (on home CPAP), prediabetes with prostate cancer on hormonal therapy and prior to receiving radiation, underwent a
colonoscopy to find a malignant polyp in the sigmoid; presented this admission for elective colectomy
POD 2 robotic sigmoidectomy with stapled EEA anastomosis, tap block
AFVSS
Labs stable with mild acute post operative anemia secondary to intraoperative losses/hemodilution
Voiding s/p cruz removal
Passing flatus/stools
� Continue regular diet
� Pain control with ATC Tylenol and PRN oxycodone
� Will start DVT PPx with subQ heparin; okay to restart Eliquis on POD 3 if no evidence of bleeding
� OOB/IS
� Appreciate cardiology, following postoperatively; follow up planned in 1 week as OP
�Appreciate hospitalist for comorbidities
D/C to home with family
Subjective Data
Procedure
01/22/2024- Robotic sigmoidectomy, lysis of adhesions greater than 30 minutes, mesenteric angiography with ICG, flexible sigmoidoscopy, laparoscopic TAP block
Subjective Data
Date of Service: January 24, 2024
Patient seen and examined at bedside with Dr. Gutierrez. Denies significant discomfort. Passing flatus/stools. Tolerating diet. Denies n/v.
Objective Data
-
Vital Signs
Temp Pulse Resp BP Pulse Ox
97.4 F 72 16 129/70 96
01/24/24 07:25 01/24/24 07:25 01/24/24 07:25 01/24/24 07:25 01/24/24 07:56
Intake & Output
01/23/24 01/24/24 01/25/24
06:59 06:59 06:59
Intake Total 890 / 890 830 / 830
Output Total 880 / 880 1460 / 1460
Balance -630 / -630
Intake:
Oral fluids 240 / 240 480 / 480
IV fluids (Total) 650 / 650 350 / 350
normosol 150 / 150
Output:
Urine, Cruz 880 / 880 400 / 400
Urine, Voided 1060 / 1060
Other:
Number of approximated MODERATE 1 1
amounts of urine
Lab Results
01/24/24 04:38
01/24/24 04:38
Physical Exam
-
General: No Acute Distress and AOx3
Abdomen: Soft, Non Distended and Non Tender
Skin: Warm and Dry
Incision: Clear, Dry, Intact
[2024-01-24 15:11] VITALS: BP 148/85
--- NOTE | 2024-01-25 07:28 | CM ---
patient sp robo sigmoidectomy is stable for dc home.he is voiding post fsoley removal,ambulating ,passing gas,eating.family to transport home.explained imm letter to patimiranda and letter not isgned..
--- NOTE | 2024-01-25 15:28 | W.DCSUMMARY ---
Discharge Summary
Discharge Data
Date of Admission: 01/22/24
Date of Discharge: 01/24/24
-
Pending Results: No
Hospital Course
Mr. Orourke is a 73 yo male with a history of cad, paf and ischemic cardiomyopathy with reduced EF who presented for scheduled operative management of sigmoid colon cancer with robotic sigmoidectomy. He tolerated the procedure well without
complication. Diet was able to be advanced post operatively and well tolerated with good bowel recovery. He was followed by hospitalist service and cardiology during his stay for management with plan to resume Entresto after discharge on POD 5 and
Eliquis on POD 3. Cardiology follow up was arranged prior to discharge as was surgical follow up. Pathology from OR was pending at time of discharge and will be followed on an outpatient basis.
Discharge Plan
-
Patient Disposition: Home (Routine Discharge)
Discharge Diagnosis/Procedures: Robotic sigmoidectomy, lysis of adhesions greater than 30 minutes, mesenteric angiography with ICG, flexible sigmoidoscopy, laparoscopic TAP block
Condition: Good
Diet: As tolerated and Regular
Activity: No strenuous activity
Additional Activity: No lifting over 10 pounds.
Driving Restrictions: No driving while using narcotics.
Bathing Restrictions: OK to Shower
Wound Care: Allow glue to naturally fall off. Do not pick at incisions.
Referrals:
Pam Ruby DO [Active] - in one week (March 18 at 1 PM)
Hany Kemp MD [Active] - in two weeks
Juan Oswald DO [Family Provider] -
Additional Discharge Medication Instructions: Restart your Eliquis on 01/25/2024. You may take Tylenol as needed for pain. Restart Entresto 49/51mg on January 26. The maximum of Tylenol in 24 hours is 4000 mg.
Prescriptions:
New
acetaminophen [acetaminophen] 325 mg tablet
650 mg PO Q4HPRN PRN (Reason: mild pain) Qty: 1 0RF
oxycodone 5 mg tablet
5 mg PO Q4HPRN PRN (Reason: breakthrough/severe pain) Qty: 10 0RF
Continued
furosemide 40 MG tablet
40 mg PO DAILY
atorvastatin 40 MG tablet
40 mg PO DAILY
carvedilol 6.25 MG tablet
6.25 mg PO BID
amiodarone 200 MG tablet
200 mg PO DAILY
pantoprazole 40 MG tablet,delayed release (DR/EC)
40 mg PO DAILY
Held
Eliquis 5 MG tablet
5 mg PO BID
Hold Instructions: Resume on 01/25/24.
Entresto 49-51 mg Tablet
1 tab PO BID
Hold Instructions: Resume on 01/27/24.
Discontinued
metronidazole [Flagyl] 500 mg Tablet
500 mg PO PRE OP
neomycin 500 mg Tablet
1 g PO PRE OP
Sutab 1.479-0.188- 0.225 gram Tablet
0 tab PO PRE OP
Discharge Orders:
Discharge Patient (As Directed); Ordered 01/24/24
Ordered By: Mayuri Serrano
Discharge Date and Time
Discharge Date/Time: 01/24/24 15:39
Print Language: ESTONIAN
== END 2024-01-24 15:39 | disposition home or self-care (01) | DRG 330 ==
LOC: 2 SOUTH 11:08
PROVIDERS: Internal Medicine; ADMITTING PHYSICIAN Surgery; FAMILY PHYSICIAN Internal Medicine; OTHER PHYSICIAN Internal Medicine Cardiovascular Disease; OTHER PHYSICIAN Student in an Organized Health Care Education/Training Program
PROC: 5A09357 Assistance with Respiratory Ventilation, Less than 24 Consecutive Hours, Continuous Positive Airway Pressure (ICD-10-PCS; 2024-01-22)
PROC: 0DTN4ZZ Resection of Sigmoid Colon, Percutaneous Endoscopic Approach (ICD-10-PCS; 2024-01-22)
PROC: 4A1BXSH Monitoring of Gastrointestinal Vascular Perfusion using Indocyanine Green Dye, External Approach (ICD-10-PCS; 2024-01-22)
PROC: 0DNN4ZZ Release Sigmoid Colon, Percutaneous Endoscopic Approach (ICD-10-PCS; 2024-01-22)
PROC: 3E0T33Z Introduction of Anti-inflammatory into Peripheral Nerves and Plexi, Percutaneous Approach (ICD-10-PCS; 2024-01-22)
PROC: 8E0W4CZ Robotic Assisted Procedure of Trunk Region, Percutaneous Endoscopic Approach (ICD-10-PCS; 2024-01-22)
PROC: 0DJD8ZZ Inspection of Lower Intestinal Tract, Via Natural or Artificial Opening Endoscopic (ICD-10-PCS; 2024-01-22)
PROC: 3E0T3BZ Introduction of Anesthetic Agent into Peripheral Nerves and Plexi, Percutaneous Approach (ICD-10-PCS; 2024-01-22)
DX: C18.7 Malignant neoplasm of sigmoid colon (principal); I42.0 Dilated cardiomyopathy; G47.33 Obstructive sleep apnea (adult) (pediatric); I12.9 Hypertensive chronic kidney disease with stage 1 through stage 4 chronic kidney disease, or unspecified chronic kidney disease; I25.10 Atherosclerotic heart disease of native coronary artery without angina pectoris; R73.03 Prediabetes; C61 Malignant neoplasm of prostate; N18.30 Chronic kidney disease, stage 3 unspecified; D72.829 Elevated white blood cell count, unspecified; E78.00 Pure hypercholesterolemia, unspecified; I48.0 Paroxysmal atrial fibrillation; I25.5 Ischemic cardiomyopathy; Z95.1 Presence of aortocoronary bypass graft; Z86.73 Personal history of transient ischemic attack (TIA), and cerebral infarction without residual deficits; Z79.01 Long term (current) use of anticoagulants
CPT/HCPCS: 88304; 88309; 36415; 71046; 80048; 80053; 83036; 83735; 85025; 85027; 85610; 85730; 86850; 86900; 86901; 93005; 94660; 97162

== ENCOUNTER 2024-02-18 06:34 | Day surgery (SDC) | payer OTHER, SELFPAY ==
[2024-02-18] VITALS (8 sets, daily range): BP systolic 130–149; BP diastolic 71–84; BMI 34.3
[2024-02-18 11:18] LABS: Glucose - Point of Care 108 mg/dl (70-99)
[2024-02-18] MEDS: NORMOSOL-R 1000 IV (11:20)
[2024-02-18] MEDS: TYLENOL 1000 MG PO (11:41)
[2024-02-18 13:55] LABS: Glucose - Point of Care 105 mg/dl (70-99)
--- NOTE | 2024-02-18 16:01 | W.IMMPOSTOP ---
Surgical Immed Post Op Note
-
Primary Surgeon: Hany Kemp MD
Assisting Surgeon: None
Pre-op Diagnosis: Stage III colon cancer
Post-op Diagnosis: Same
Procedure Performed: Placement of right subclavian Mediport
Anesthesia Type: Sedation with local
Specimen / Cultures: None
Estimated Blood Loss: 10 mL
Complications: None
Operative Findings: Obtained access to the right subclavian vein on first pass; guidewire placed and confirmed placement on fluoroscopy; advanced catheter to the cavoatrial junction, just below the zhao on fluoroscopy; once port secured to the
chest, port tested with andino needle and had easy aspiration of blood and easy injection of heparinized saline
--- NOTE | 2024-02-18 16:08 | OR.RPT ---
Operative Report
Operative Report
DATE OF OPERATION: 02/18/2024
SURGEON: Hany Kemp MD
PREOPERATIVE DIAGNOSIS: Stage III colon cancer
POSTOPERATIVE DIAGNOSIS: Stage III colon cancer
OPERATION: Right subclavian Mediport insertion
ASSISTANTS:
1. None
ANESTHESIA: MAC w/ local
ESTIMATED BLOOD LOSS: 10 mL
FINDINGS:
1. After placement, the tip of port catheter visualized at level of the cavoatrial junction on fluoroscopy
2. Once sutured in position, port tested with Frederick needle and there was good withdrawal of blood and instillation of heparinized saline without resistance
SPECIMENS: None
DRAINS: None
COMPLICATIONS: No immediate complications.
INDICATIONS: The patient is a 73-year-old male with stage III colon cancer. Infusional chemotherapy was recommended. Therefore, I recommended port placement. The operation was discussed with the patient in detail including risks and benefits.
Risks discussed included, but are not limited to, bleeding, infection, hemothorax, pneumothorax, post-operative malposition or movement of catheter, DVT/PE, and anesthetic risks. The patient understood and agreed to proceed. The consent was signed
and placed in the chart.
PROCEDURE: Patient was taken to the operating room and placed on the operating table in supine position. Sequential compression devices were placed bilaterally. Sedation was commenced without complication. Bilateral arms were tucked and the head
tilted toward the left. The right neck and chest wall area were shaved and prepped and draped in a sterile fashion. A time-out was then performed verifying the correct patient, procedure, operative site, positioning, and special equipment.
The patient was then placed in Trendelenburg position. Local anesthetic consisting of lidocaine 1% with epinephrine was used to numb the skin and soft tissue near the angle of the right clavicle and the planned subcutaneous port pocket. Then using
bony landmarks as a guide, I passed the needle with 10mL syringe under the right collar bone in the direction of the sternal notch while simultaneously aspirating. On the first pass, good venous return was noted indicating that I had accessed the
right subclavian vein. Under fluoroscopic guidance a guidewire was passed through the needle into the patient down to the superior vena cava. This went smoothly.
The needle was removed over the guidewire and a skin opening was enlarged with an 11 blade scalpel. Next, I advanced the dilator and peel-away sheath together over the guidewire into the patient. This went smoothly as well. Next, the guidewire and
inner dilator were removed leaving the outer sheath in place. I advanced the white tubing through the outer sheath into the patient under fluoroscopic guidance to the superior vena cava near the right atrium. Next, the outer sheath was peeled away
while maintaining the white tubing in place.
Using a 15 blade scalpel, I made a 4cm incision over the chest wall near the white tubing exit site. A subcutaneous pocket was created inferiorly to the incision with a combination of Bovie electrocautery and blunt dissection. There was good
hemostasis. The white tubing was connected to the tunneling device and brought through a newly created tunnel to the pocket area, taking care to avoid kinking of the tube. The white tubing was trimmed, connected to the the port reservoir and secured
with the locking mechanism. The port reservoir was accessed with good venous return and flushed with heparinized saline. One last round of fluoroscopy was performed. The tip of the white tubing was at the level of the superior vena cava and there
was no kink in the tubing.
The reservoir was then secured to the chest wall within the pocket with two 3-0 Prolene stitches. The port reservoir was accessed again through the skin with good venous return and flushed with heparinized saline. The subcutaneous layer was closed
with deep dermal interrupted 3-0 Vicryl and the skin was closed with a running subcuticular 4-0 Vicryl. The remaining local was injected around the subcutaneous pocket, port incision and stab incision. Dermabond was used to dress the port incision
and stab incision.
At this point, the procedure was complete. All sponge, needle and instrument counts were correct. The patient tolerated the procedure well and was transferred to the recovery room in stable condition. A portable chest x-ray was ordered in recovery
to confirm port position and rule-out pneumothorax.
DICTATED BY: Hany Kemp MD
--- NOTE | 2024-02-18 18:29 | PTCARENOTE ---
Called pt with information in regard to his device, given rn admissions, serial number and catalog number. Told to keep a copy of this information in his wallet.
== END 2024-02-18 17:30 | disposition home or self-care (01) ==
LOC: SDS 06:34
PROVIDERS: ATTENDING PHYSICIAN Surgery
DX: C18.9 Malignant neoplasm of colon, unspecified (principal)
CPT/HCPCS: 36561; 71045; 76000; 82962; C1788

== ENCOUNTER → 2024-05-31 08:22 | Outpatient (REF) | payer MEDICARE, SELFPAY ==
[2024-05-31 09:53] LABS: % Basophils 0.7 % (0-2); % Eosinophils 1.3 % (0-6); % Immature Granulocytes 0.7 % (0-0.5); % Lymphocytes 17.5 % (20.5-51.1); % Monocytes 13.8 % (1.7-9.3); Absolute Eosinophils 0.1 10^3/uL (0-0.7); Absolute Lymphocytes 0.9 10^3/uL (1.2-3.4); Absolute Monocytes 0.7 10^3/uL (0.1-0.6); Absolute Neutrophils 3.6 10^3/uL (1.4-6.5); Hemoglobin 10.7 g/dL (13.0-18.0); Mean Corp Hgb Conc. 33.4 g/dL (33.0-37.0); Mean Corpuscular Hgb 31.7 pg (27.0-31.0); Mean Corpuscular Volume 94.7 fL (80.0-94.0); Mean Platelet Volume 9.8 fL (7.4-10.4); Nucleated Red Blood Cells % 0 % (-); Platelet Count 190 10^3/uL (130-400); Red Blood Cell Count 3.38 10^6/uL (4.70-6.10); Red Cell Dist. Width 19.8 % (11.5-14.5); White Blood Cell Count 5.4 10^3/uL (4.8-10.8)
[2024-05-31 10:26] LABS: ALT (SGPT) 18 U/L (0-50); AST (SGOT) 25 U/L (17-59); Albumin 3.5 g/dl (3.5-5.0); Alkaline Phosphatase 79 U/L (38-126); Blood Urea Nitrogen 18 mg/dl (9-20); Calcium 9.3 mg/dl (8.4-10.2); Carbon Dioxide 26 mmol/L (22-30); Chloride 104 mmol/L (98-107); Glucose 116 mg/dl (70-99); Potassium 3.6 mmol/L (3.5-5.1); Sodium 142 mmol/L (135-145); Total Bilirubin 1.3 mg/dl (0.2-1.3); Total Protein 5.8 g/dl (6.3-8.2); eGFR 58.37
== END ==
LOC: REG 08:22
PROVIDERS: ATTENDING PHYSICIAN Internal Medicine Hematology & Oncology; FAMILY PHYSICIAN Internal Medicine
DX: C18.9 Malignant neoplasm of colon, unspecified (principal); C61 Malignant neoplasm of prostate
CPT/HCPCS: 36415; 80053; 85025

== ENCOUNTER → 2024-06-14 09:43 | Outpatient (REF) | payer MEDICARE, SELFPAY ==
[2024-06-14 10:53] LABS: % Basophils 0.5 % (0-2); % Eosinophils 0.7 % (0-6); % Immature Granulocytes 0.5 % (0-0.5); % Lymphocytes 20.5 % (20.5-51.1); % Monocytes 12.9 % (1.7-9.3); % Neutrophils 64.9 % (42.2-75.2); Absolute Lymphocytes 0.9 10^3/uL (1.2-3.4); Absolute Monocytes 0.5 10^3/uL (0.1-0.6); Absolute Neutrophils 2.7 10^3/uL (1.4-6.5); Hematocrit 32.4 % (39.0-52.0); Mean Corpuscular Hgb 32.2 pg (27.0-31.0); Mean Corpuscular Volume 94.7 fL (80.0-94.0); Mean Platelet Volume 10.1 fL (7.4-10.4); Nucleated Red Blood Cells % 0 % (-); Platelet Count 112 10^3/uL (130-400); Red Blood Cell Count 3.42 10^6/uL (4.70-6.10); Red Cell Dist. Width 17.4 % (11.5-14.5); White Blood Cell Count 4.2 10^3/uL (4.8-10.8)
[2024-06-14 11:21] LABS: ALT (SGPT) 18 U/L (0-50); AST (SGOT) 23 U/L (17-59); Albumin 3.6 g/dl (3.5-5.0); Alkaline Phosphatase 116 U/L (38-126); Blood Urea Nitrogen 20 mg/dl (9-20); Carbon Dioxide 25 mmol/L (22-30); Chloride 106 mmol/L (98-107); Glucose 112 mg/dl (70-99); Sodium 144 mmol/L (135-145); Total Bilirubin 0.8 mg/dl (0.2-1.3); Total Protein 5.9 g/dl (6.3-8.2); eGFR 49.16
== END ==
LOC: REG 09:43
PROVIDERS: ATTENDING PHYSICIAN Internal Medicine Hematology & Oncology; FAMILY PHYSICIAN Internal Medicine
DX: C18.9 Malignant neoplasm of colon, unspecified (principal); C61 Malignant neoplasm of prostate
CPT/HCPCS: 36415; 80053; 85025

== ENCOUNTER → 2024-06-28 10:23 | Outpatient (REF) | payer MEDICARE, SELFPAY ==
[2024-06-28 11:20] LABS: % Basophils 1.2 % (0-2); % Eosinophils 1.2 % (0-6); % Immature Granulocytes 0.7 % (0-0.5); % Lymphocytes 21.4 % (20.5-51.1); % Monocytes 15.8 % (1.7-9.3); % Neutrophils 59.7 % (42.2-75.2); Absolute Basophils 0.1 10^3/uL (0-0.2); Absolute Eosinophils 0.1 10^3/uL (0-0.7); Absolute Lymphocytes 0.9 10^3/uL (1.2-3.4); Absolute Monocytes 0.7 10^3/uL (0.1-0.6); Absolute Neutrophils 2.5 10^3/uL (1.4-6.5); Hematocrit 32.9 % (39.0-52.0); Hemoglobin 11.1 g/dL (13.0-18.0); Mean Corp Hgb Conc. 33.7 g/dL (33.0-37.0); Mean Corpuscular Hgb 31.8 pg (27.0-31.0); Mean Corpuscular Volume 94.3 fL (80.0-94.0); Mean Platelet Volume 11.3 fL (7.4-10.4); Nucleated Red Blood Cells % 0 % (-); Platelet Count 80 10^3/uL (130-400); Red Blood Cell Count 3.49 10^6/uL (4.70-6.10); Red Cell Dist. Width 15.8 % (11.5-14.5); White Blood Cell Count 4.1 10^3/uL (4.8-10.8)
[2024-06-28 12:07] LABS: ALT (SGPT) 20 U/L (0-50); AST (SGOT) 24 U/L (17-59); Albumin 3.6 g/dl (3.5-5.0); Alkaline Phosphatase 104 U/L (38-126); Blood Urea Nitrogen 15 mg/dl (9-20); Calcium 9.5 mg/dl (8.4-10.2); Carbon Dioxide 27 mmol/L (22-30); Chloride 106 mmol/L (98-107); Glucose 125 mg/dl (70-99); Sodium 142 mmol/L (135-145); Total Bilirubin 0.8 mg/dl (0.2-1.3); eGFR > 60.00
== END ==
LOC: REG 10:23
PROVIDERS: ATTENDING PHYSICIAN Internal Medicine Hematology & Oncology; FAMILY PHYSICIAN Internal Medicine
DX: C18.9 Malignant neoplasm of colon, unspecified (principal); C61 Malignant neoplasm of prostate
CPT/HCPCS: 36415; 80053; 85025

== ENCOUNTER → 2024-07-12 10:40 | Outpatient (REF) | payer MEDICARE, SELFPAY ==
[2024-07-12 11:32] LABS: Hematocrit 33.5 % (39.0-52.0); Hemoglobin 11.4 g/dL (13.0-18.0); Mean Corpuscular Hgb 32.9 pg (27.0-31.0); Mean Corpuscular Volume 96.5 fL (80.0-94.0); Mean Platelet Volume 10.5 fL (7.4-10.4); Platelet Count 69 10^3/uL (130-400); Red Blood Cell Count 3.47 10^6/uL (4.70-6.10); Red Cell Dist. Width 15.4 % (11.5-14.5); White Blood Cell Count 3.9 10^3/uL (4.8-10.8)
[2024-07-12 11:38] LABS: ALT (SGPT) 19 U/L (0-50); AST (SGOT) 25 U/L (17-59); Albumin 3.4 g/dl (3.5-5.0); Alkaline Phosphatase 95 U/L (38-126); Blood Urea Nitrogen 13 mg/dl (9-20); Calcium 9.2 mg/dl (8.4-10.2); Carbon Dioxide 26 mmol/L (22-30); Chloride 104 mmol/L (98-107); Glucose 131 mg/dl (70-99); Potassium 3.9 mmol/L (3.5-5.1); Sodium 141 mmol/L (135-145); Total Protein 5.8 g/dl (6.3-8.2); eGFR > 60.00
[2024-07-12 11:56] LABS: Absolute Neutrophils -Man Diff 2.2 10^3/uL (1.4-6.5); Band Neutrophils 3 % (0-3); Lymphocytes 27 % (20-51); Metamyelocytes 2 % (-); Monocytes 14 % (2-9); Segmented Neutrophils 54 % (42-75)
[2024-07-12 11:57] LABS: Anisocytosis 1+; Normal RBC Morphology No; Platelets Checked Yes
[2024-07-12 11:58] LABS: Hypochromasia 1+; Ovalocytes 1+; Polychromasia 1+; Total Cells Counted 100
== END ==
LOC: REG 10:40
PROVIDERS: ATTENDING PHYSICIAN Internal Medicine Hematology & Oncology; FAMILY PHYSICIAN Internal Medicine
DX: C18.9 Malignant neoplasm of colon, unspecified (principal); C61 Malignant neoplasm of prostate
CPT/HCPCS: 36415; 80053; 85025

== ENCOUNTER → 2024-07-19 10:18 | Outpatient (REF) | payer MEDICARE, SELFPAY ==
[2024-07-19 11:07] LABS: % Basophils 0.8 % (0-2); % Eosinophils 0.8 % (0-6); % Immature Granulocytes 0.4 % (0-0.5); % Lymphocytes 16.9 % (20.5-51.1); % Monocytes 16.9 % (1.7-9.3); % Neutrophils 64.2 % (42.2-75.2); Absolute Lymphocytes 0.9 10^3/uL (1.2-3.4); Absolute Monocytes 0.9 10^3/uL (0.1-0.6); Absolute Neutrophils 3.4 10^3/uL (1.4-6.5); Hematocrit 35.1 % (39.0-52.0); Hemoglobin 11.8 g/dL (13.0-18.0); Mean Corp Hgb Conc. 33.6 g/dL (33.0-37.0); Mean Corpuscular Hgb 33.7 pg (27.0-31.0); Mean Corpuscular Volume 100.3 fL (80.0-94.0); Nucleated Red Blood Cells % 0 % (-); Platelet Count 171 10^3/uL (130-400); Red Cell Dist. Width 16.5 % (11.5-14.5); White Blood Cell Count 5.3 10^3/uL (4.8-10.8)
[2024-07-19 11:44] LABS: ALT (SGPT) 19 U/L (0-50); AST (SGOT) 26 U/L (17-59); Albumin 3.4 g/dl (3.5-5.0); Alkaline Phosphatase 81 U/L (38-126); Blood Urea Nitrogen 17 mg/dl (9-20); Calcium 8.9 mg/dl (8.4-10.2); Carbon Dioxide 27 mmol/L (22-30); Chloride 103 mmol/L (98-107); Glucose 121 mg/dl (70-99); Potassium 3.7 mmol/L (3.5-5.1); Sodium 141 mmol/L (135-145); Total Bilirubin 0.9 mg/dl (0.2-1.3); Total Protein 5.7 g/dl (6.3-8.2); eGFR > 60.00
== END ==
LOC: REG 10:18
PROVIDERS: ATTENDING PHYSICIAN Internal Medicine Hematology & Oncology; FAMILY PHYSICIAN Internal Medicine
DX: C18.9 Malignant neoplasm of colon, unspecified (principal); C61 Malignant neoplasm of prostate
CPT/HCPCS: 36415; 80053; 85025

== ENCOUNTER → 2024-08-02 12:38 | Outpatient (REF) | payer MEDICARE, SELFPAY ==
[2024-08-02 13:51] LABS: % Basophils 0.7 % (0-2); % Eosinophils 0.7 % (0-6); % Immature Granulocytes 0.9 % (0-0.5); % Lymphocytes 17.2 % (20.5-51.1); % Neutrophils 65.5 % (42.2-75.2); Absolute Lymphocytes 0.8 10^3/uL (1.2-3.4); Absolute Monocytes 0.7 10^3/uL (0.1-0.6); Absolute Neutrophils 2.9 10^3/uL (1.4-6.5); Hematocrit 36.5 % (39.0-52.0); Hemoglobin 12.3 g/dL (13.0-18.0); Mean Corp Hgb Conc. 33.7 g/dL (33.0-37.0); Mean Corpuscular Hgb 33.3 pg (27.0-31.0); Mean Corpuscular Volume 98.9 fL (80.0-94.0); Mean Platelet Volume 11.4 fL (7.4-10.4); Nucleated Red Blood Cells % 0 % (-); Platelet Count 102 10^3/uL (130-400); Red Blood Cell Count 3.69 10^6/uL (4.70-6.10); Red Cell Dist. Width 15.5 % (11.5-14.5); White Blood Cell Count 4.4 10^3/uL (4.8-10.8)
[2024-08-02 14:02] LABS: ALT (SGPT) 19 U/L (0-50); AST (SGOT) 26 U/L (17-59); Albumin 3.6 g/dl (3.5-5.0); Alkaline Phosphatase 99 U/L (38-126); Blood Urea Nitrogen 17 mg/dl (9-20); Carbon Dioxide 26 mmol/L (22-30); Chloride 105 mmol/L (98-107); Glucose 143 mg/dl (70-99); Potassium 3.8 mmol/L (3.5-5.1); Sodium 143 mmol/L (135-145); Total Bilirubin 0.8 mg/dl (0.2-1.3); Total Protein 6.1 g/dl (6.3-8.2); eGFR > 60.00
== END ==
LOC: REG 12:38
PROVIDERS: ATTENDING PHYSICIAN Internal Medicine Hematology & Oncology; FAMILY PHYSICIAN Internal Medicine
DX: C18.9 Malignant neoplasm of colon, unspecified (principal); C61 Malignant neoplasm of prostate
CPT/HCPCS: 36415; 80053; 85025

== ENCOUNTER → 2024-08-16 12:42 | Outpatient (REF) | payer MEDICARE, SELFPAY ==
[2024-08-16 14:08] LABS: ALT (SGPT) 18 U/L (0-50); AST (SGOT) 24 U/L (17-59); Albumin 3.5 g/dl (3.5-5.0); Alkaline Phosphatase 96 U/L (38-126); Blood Urea Nitrogen 15 mg/dl (9-20); Calcium 9.1 mg/dl (8.4-10.2); Carbon Dioxide 25 mmol/L (22-30); Chloride 104 mmol/L (98-107); Glucose 118 mg/dl (70-99); Potassium 3.7 mmol/L (3.5-5.1); Sodium 139 mmol/L (135-145); Total Bilirubin 1.2 mg/dl (0.2-1.3); eGFR > 60.00
[2024-08-16 14:39] LABS: Hematocrit 33.4 % (39.0-52.0); Hemoglobin 11.2 g/dL (13.0-18.0); Mean Corp Hgb Conc. 33.5 g/dL (33.0-37.0); Mean Corpuscular Hgb 32.7 pg (27.0-31.0); Mean Corpuscular Volume 97.7 fL (80.0-94.0); Mean Platelet Volume 12.4 fL (7.4-10.4); Platelet Count 47 10^3/uL (130-400); Red Blood Cell Count 3.42 10^6/uL (4.70-6.10); Red Cell Dist. Width 14.9 % (11.5-14.5); White Blood Cell Count 4.4 10^3/uL (4.8-10.8)
[2024-08-16 14:42] LABS: PSA, Total - Diagnostic 0.33 ng/ml (0.0-4.0)
[2024-08-16 15:50] LABS: % Basophils 1.1 % (0-2); % Eosinophils 0.5 % (0-6); % Immature Granulocytes 1.1 % (0-0.5); % Monocytes 18.7 % (1.7-9.3); % Neutrophils 58.6 % (42.2-75.2); Absolute Basophils 0.1 10^3/uL (0-0.2); Absolute Immature Granulocytes 0.1 10^3/uL (0-0.05); Absolute Lymphocytes 0.9 10^3/uL (1.2-3.4); Absolute Monocytes 0.8 10^3/uL (0.1-0.6); Absolute Neutrophils 2.6 10^3/uL (1.4-6.5); Nucleated Red Blood Cells % 0 % (-)
== END ==
LOC: REG 12:42
PROVIDERS: ATTENDING PHYSICIAN Internal Medicine Hematology & Oncology; FAMILY PHYSICIAN Internal Medicine; OTHER PHYSICIAN Radiology Radiation Oncology
DX: C61 Malignant neoplasm of prostate (principal); C18.9 Malignant neoplasm of colon, unspecified
CPT/HCPCS: 36415; 80053; 84153; 85025

== ENCOUNTER → 2024-08-27 11:06 | Outpatient (REF) | payer MEDICARE, SELFPAY ==
[2024-08-27 11:58] LABS: % Basophils 0.4 % (0-2); % Eosinophils 1.3 % (0-6); % Immature Granulocytes 0.2 % (0-0.5); % Lymphocytes 16.6 % (20.5-51.1); % Monocytes 20.1 % (1.7-9.3); % Neutrophils 61.4 % (42.2-75.2); Absolute Eosinophils 0.1 10^3/uL (0-0.7); Absolute Lymphocytes 0.8 10^3/uL (1.2-3.4); Absolute Monocytes 0.9 10^3/uL (0.1-0.6); Absolute Neutrophils 2.8 10^3/uL (1.4-6.5); Hematocrit 34.7 % (39.0-52.0); Hemoglobin 11.8 g/dL (13.0-18.0); Mean Platelet Volume 10.5 fL (7.4-10.4); Nucleated Red Blood Cells % 0 % (-); Platelet Count 140 10^3/uL (130-400); Red Blood Cell Count 3.47 10^6/uL (4.70-6.10); White Blood Cell Count 4.6 10^3/uL (4.8-10.8)
[2024-08-27 12:22] LABS: ALT (SGPT) 20 U/L (0-50); AST (SGOT) 30 U/L (17-59); Albumin 3.4 g/dl (3.5-5.0); Alkaline Phosphatase 80 U/L (38-126); Blood Urea Nitrogen 15 mg/dl (9-20); Calcium 9.3 mg/dl (8.4-10.2); Carbon Dioxide 26 mmol/L (22-30); Chloride 103 mmol/L (98-107); Glucose 207 mg/dl (70-99); Potassium 4.1 mmol/L (3.5-5.1); Sodium 137 mmol/L (135-145); Total Bilirubin 1.1 mg/dl (0.2-1.3); Total Protein 5.7 g/dl (6.3-8.2); eGFR > 60.00
[2024-08-27 12:48] LABS: Segmented Neutrophils 64 % (42-75)
[2024-08-27 12:49] LABS: Absolute Neutrophils -Man Diff 2.9 10^3/uL (1.4-6.5); Band Neutrophils 0 % (0-3); Eosinophils 1 % (0-6); Lymphocytes 21 % (20-51); Monocytes 13 % (2-9); Normal RBC Morphology Yes; Platelets Checked Yes; Total Cells Counted 100
== END ==
LOC: REG 11:06
PROVIDERS: ATTENDING PHYSICIAN Internal Medicine Hematology & Oncology; FAMILY PHYSICIAN Internal Medicine
DX: C18.9 Malignant neoplasm of colon, unspecified (principal); C61 Malignant neoplasm of prostate
CPT/HCPCS: 36415; 80053; 85025

== ENCOUNTER → 2024-09-13 12:49 | Outpatient (REF) | payer MEDICARE, SELFPAY ==
[2024-09-13 14:24] LABS: % Basophils 0.6 % (0-2); % Eosinophils 1.7 % (0-6); % Immature Granulocytes 0.8 % (0-0.5); % Lymphocytes 15.3 % (20.5-51.1); % Monocytes 11.9 % (1.7-9.3); % Neutrophils 69.7 % (42.2-75.2); Absolute Eosinophils 0.1 10^3/uL (0-0.7); Absolute Lymphocytes 0.7 10^3/uL (1.2-3.4); Absolute Monocytes 0.6 10^3/uL (0.1-0.6); Absolute Neutrophils 3.3 10^3/uL (1.4-6.5); Hematocrit 34.9 % (39.0-52.0); Hemoglobin 11.7 g/dL (13.0-18.0); Mean Corp Hgb Conc. 33.5 g/dL (33.0-37.0); Mean Corpuscular Hgb 32.9 pg (27.0-31.0); Mean Platelet Volume 11.1 fL (7.4-10.4); Nucleated Red Blood Cells % 0 % (-); Platelet Count 92 10^3/uL (130-400); Red Blood Cell Count 3.56 10^6/uL (4.70-6.10); Red Cell Dist. Width 15.3 % (11.5-14.5); White Blood Cell Count 4.7 10^3/uL (4.8-10.8)
[2024-09-13 14:52] LABS: ALT (SGPT) 18 U/L (0-50); AST (SGOT) 25 U/L (17-59); Albumin 3.4 g/dl (3.5-5.0); Alkaline Phosphatase 120 U/L (38-126); Blood Urea Nitrogen 20 mg/dl (9-20); Calcium 9.2 mg/dl (8.4-10.2); Carbon Dioxide 26 mmol/L (22-30); Chloride 101 mmol/L (98-107); Glucose 142 mg/dl (70-99); Sodium 135 mmol/L (135-145); Total Bilirubin 0.8 mg/dl (0.2-1.3); Total Protein 5.8 g/dl (6.3-8.2); eGFR > 60.00
== END ==
LOC: REG 12:49
PROVIDERS: ATTENDING PHYSICIAN Internal Medicine Hematology & Oncology; FAMILY PHYSICIAN Internal Medicine
DX: C18.9 Malignant neoplasm of colon, unspecified (principal); C61 Malignant neoplasm of prostate
CPT/HCPCS: 36415; 80053; 85025

== ENCOUNTER → 2024-09-27 13:25 | Outpatient (REF) | payer MEDICARE, SELFPAY ==
[2024-09-27 13:58] LABS: % Basophils 0.6 % (0-2); % Eosinophils 0.6 % (0-6); % Immature Granulocytes 0.4 % (0-0.5); % Lymphocytes 18.2 % (20.5-51.1); % Monocytes 16.5 % (1.7-9.3); % Neutrophils 63.7 % (42.2-75.2); Absolute Lymphocytes 0.9 10^3/uL (1.2-3.4); Absolute Monocytes 0.8 10^3/uL (0.1-0.6); Absolute Neutrophils 3.1 10^3/uL (1.4-6.5); Hematocrit 34.5 % (39.0-52.0); Hemoglobin 11.8 g/dL (13.0-18.0); Mean Corp Hgb Conc. 34.2 g/dL (33.0-37.0); Mean Corpuscular Volume 99.4 fL (80.0-94.0); Mean Platelet Volume 9.5 fL (7.4-10.4); Nucleated Red Blood Cells % 0 % (-); Platelet Count 107 10^3/uL (130-400); Red Blood Cell Count 3.47 10^6/uL (4.70-6.10); Red Cell Dist. Width 14.7 % (11.5-14.5); White Blood Cell Count 4.8 10^3/uL (4.8-10.8)
[2024-09-27 14:30] LABS: ALT (SGPT) 24 U/L (0-50); AST (SGOT) 32 U/L (17-59); Albumin 3.5 g/dl (3.5-5.0); Alkaline Phosphatase 102 U/L (38-126); Blood Urea Nitrogen 19 mg/dl (9-20); Calcium 9.1 mg/dl (8.4-10.2); Carbon Dioxide 28 mmol/L (22-30); Chloride 101 mmol/L (98-107); Glucose 131 mg/dl (70-99); Potassium 4.2 mmol/L (3.5-5.1); Sodium 137 mmol/L (135-145); Total Protein 5.9 g/dl (6.3-8.2); eGFR > 60.00
== END ==
LOC: REG 13:25
PROVIDERS: ATTENDING PHYSICIAN Internal Medicine Hematology & Oncology; FAMILY PHYSICIAN Internal Medicine
DX: C18.9 Malignant neoplasm of colon, unspecified (principal); C61 Malignant neoplasm of prostate
CPT/HCPCS: 36415; 80053; 85025

== ENCOUNTER → 2024-10-05 13:10 | Outpatient (REF) | payer MEDICARE, SELFPAY | LOC: RAD 13:10 | PROVIDERS: ATTENDING PHYSICIAN Internal Medicine Hematology & Oncology; FAMILY PHYSICIAN Internal Medicine | DX: C18.9 Malignant neoplasm of colon, unspecified (principal); C61 Malignant neoplasm of prostate | CPT/HCPCS: 71260; 74160; Q9967 ==

== ENCOUNTER → 2024-10-11 14:24 | Outpatient (REF) | payer MEDICARE, SELFPAY ==
[2024-10-11 15:23] LABS: % Basophils 0.5 % (0-2); % Immature Granulocytes 0.3 % (0-0.5); % Lymphocytes 15.5 % (20.5-51.1); % Monocytes 10.5 % (1.7-9.3); % Neutrophils 70.2 % (42.2-75.2); Absolute Eosinophils 0.2 10^3/uL (0-0.7); Absolute Lymphocytes 0.9 10^3/uL (1.2-3.4); Absolute Monocytes 0.6 10^3/uL (0.1-0.6); Hematocrit 36.9 % (39.0-52.0); Hemoglobin 12.6 g/dL (13.0-18.0); Mean Corp Hgb Conc. 34.1 g/dL (33.0-37.0); Mean Corpuscular Hgb 32.7 pg (27.0-31.0); Mean Corpuscular Volume 95.8 fL (80.0-94.0); Mean Platelet Volume 9.8 fL (7.4-10.4); Nucleated Red Blood Cells % 0 % (-); Platelet Count 143 10^3/uL (130-400); Red Blood Cell Count 3.85 10^6/uL (4.70-6.10); Red Cell Dist. Width 13.3 % (11.5-14.5); White Blood Cell Count 5.7 10^3/uL (4.8-10.8)
[2024-10-11 17:05] LABS: ALT (SGPT) 23 U/L (0-50); AST (SGOT) 31 U/L (17-59); Albumin 3.6 g/dl (3.5-5.0); Alkaline Phosphatase 105 U/L (38-126); Blood Urea Nitrogen 22 mg/dl (9-20); Calcium 9.5 mg/dl (8.4-10.2); Carbon Dioxide 26 mmol/L (22-30); Chloride 104 mmol/L (98-107); Glucose 107 mg/dl (70-99); Potassium 4.3 mmol/L (3.5-5.1); Sodium 135 mmol/L (135-145); Total Bilirubin 1.3 mg/dl (0.2-1.3); Total Protein 6.2 g/dl (6.3-8.2); eGFR > 60.00
== END ==
LOC: REG 14:24
PROVIDERS: ATTENDING PHYSICIAN Internal Medicine Hematology & Oncology; FAMILY PHYSICIAN Internal Medicine
DX: C18.9 Malignant neoplasm of colon, unspecified (principal); C61 Malignant neoplasm of prostate
CPT/HCPCS: 36415; 80053; 85025

== ENCOUNTER → 2024-10-15 13:34 | Outpatient (REF) | payer MEDICARE, SELFPAY | LOC: MRI 13:34 | PROVIDERS: ATTENDING PHYSICIAN Radiology Radiation Oncology | DX: C61 Malignant neoplasm of prostate (principal) | CPT/HCPCS: 72197; A9575 ==

== ENCOUNTER → 2024-11-01 14:37 | Outpatient (REF) | payer MEDICARE, SELFPAY ==
[2024-11-01 15:48] LABS: % Basophils 0.3 % (0-2); % Eosinophils 1.4 % (0-6); % Immature Granulocytes 0.3 % (0-0.5); % Lymphocytes 22.8 % (20.5-51.1); % Monocytes 8.2 % (1.7-9.3); Absolute Eosinophils 0.1 10^3/uL (0-0.7); Absolute Lymphocytes 0.8 10^3/uL (1.2-3.4); Absolute Monocytes 0.3 10^3/uL (0.1-0.6); Absolute Neutrophils 2.4 10^3/uL (1.4-6.5); Hematocrit 37.1 % (39.0-52.0); Hemoglobin 12.5 g/dL (13.0-18.0); Mean Corp Hgb Conc. 33.7 g/dL (33.0-37.0); Mean Corpuscular Hgb 31.9 pg (27.0-31.0); Mean Corpuscular Volume 94.6 fL (80.0-94.0); Mean Platelet Volume 10.2 fL (7.4-10.4); Nucleated Red Blood Cells % 0 % (-); Platelet Count 117 10^3/uL (130-400); Red Blood Cell Count 3.92 10^6/uL (4.70-6.10); Red Cell Dist. Width 12.7 % (11.5-14.5); White Blood Cell Count 3.6 10^3/uL (4.8-10.8)
[2024-11-01 15:56] LABS: ALT (SGPT) 27 U/L (0-50); AST (SGOT) 30 U/L (17-59); Albumin 3.8 g/dl (3.5-5.0); Alkaline Phosphatase 114 U/L (38-126); Blood Urea Nitrogen 27 mg/dl (9-20); Calcium 9.8 mg/dl (8.4-10.2); Carbon Dioxide 27 mmol/L (22-30); Chloride 102 mmol/L (98-107); Glucose 126 mg/dl (70-99); Potassium 4.2 mmol/L (3.5-5.1); Sodium 138 mmol/L (135-145); Total Bilirubin 1.5 mg/dl (0.2-1.3); Total Protein 6.2 g/dl (6.3-8.2); eGFR 58.01
== END ==
LOC: REG 14:37
PROVIDERS: ATTENDING PHYSICIAN Internal Medicine Hematology & Oncology; FAMILY PHYSICIAN Internal Medicine
DX: C18.9 Malignant neoplasm of colon, unspecified (principal); C61 Malignant neoplasm of prostate
CPT/HCPCS: 36415; 80053; 85025

== ENCOUNTER → 2024-11-15 12:34 | Outpatient (REF) | payer MEDICARE, SELFPAY ==
[2024-11-15 13:54] LABS: % Basophils 0.2 % (0-2); % Eosinophils 1.8 % (0-6); % Immature Granulocytes 0.2 % (0-0.5); % Lymphocytes 21.6 % (20.5-51.1); % Monocytes 11.6 % (1.7-9.3); % Neutrophils 64.6 % (42.2-75.2); Absolute Eosinophils 0.1 10^3/uL (0-0.7); Absolute Monocytes 0.5 10^3/uL (0.1-0.6); Absolute Neutrophils 2.9 10^3/uL (1.4-6.5); Hematocrit 35.1 % (39.0-52.0); Hemoglobin 12.3 g/dL (13.0-18.0); Mean Corpuscular Hgb 31.9 pg (27.0-31.0); Mean Corpuscular Volume 90.9 fL (80.0-94.0); Mean Platelet Volume 9.7 fL (7.4-10.4); Nucleated Red Blood Cells % 0 % (-); Platelet Count 135 10^3/uL (130-400); Red Blood Cell Count 3.86 10^6/uL (4.70-6.10); Red Cell Dist. Width 12.9 % (11.5-14.5); White Blood Cell Count 4.5 10^3/uL (4.8-10.8)
[2024-11-15 14:32] LABS: ALT (SGPT) 25 U/L (0-50); AST (SGOT) 28 U/L (17-59); Albumin 3.6 g/dl (3.5-5.0); Alkaline Phosphatase 112 U/L (38-126); Blood Urea Nitrogen 22 mg/dl (9-20); Calcium 10.1 mg/dl (8.4-10.2); Carbon Dioxide 27 mmol/L (22-30); Chloride 103 mmol/L (98-107); Glucose 114 mg/dl (70-99); Potassium 4.4 mmol/L (3.5-5.1); Sodium 137 mmol/L (135-145); Total Bilirubin 1.4 mg/dl (0.2-1.3); eGFR 58.01
== END ==
LOC: REG 12:34
PROVIDERS: ATTENDING PHYSICIAN Internal Medicine Hematology & Oncology; FAMILY PHYSICIAN Internal Medicine
DX: C18.9 Malignant neoplasm of colon, unspecified (principal); C61 Malignant neoplasm of prostate
CPT/HCPCS: 36415; 80053; 85025

== ENCOUNTER → 2024-11-24 15:12 | Outpatient (REF) | payer MEDICARE, SELFPAY ==
[2024-11-24 16:44] LABS: CEA 2.09 ng/ml
== END ==
LOC: OIDL 15:12
PROVIDERS: ATTENDING PHYSICIAN Internal Medicine Hematology & Oncology
DX: C18.9 Malignant neoplasm of colon, unspecified (principal); C61 Malignant neoplasm of prostate
CPT/HCPCS: 82378

== ENCOUNTER → 2024-12-06 13:20 | Outpatient (REF) | payer MEDICARE, SELFPAY ==
[2024-12-06 14:21] LABS: % Basophils 0.2 % (0-2); % Eosinophils 1.9 % (0-6); % Immature Granulocytes 0.2 % (0-0.5); % Lymphocytes 18.4 % (20.5-51.1); % Monocytes 9.7 % (1.7-9.3); % Neutrophils 69.6 % (42.2-75.2); Absolute Eosinophils 0.1 10^3/uL (0-0.7); Absolute Lymphocytes 0.9 10^3/uL (1.2-3.4); Absolute Monocytes 0.5 10^3/uL (0.1-0.6); Absolute Neutrophils 3.3 10^3/uL (1.4-6.5); Hematocrit 38.2 % (39.0-52.0); Hemoglobin 12.8 g/dL (13.0-18.0); Mean Corp Hgb Conc. 33.5 g/dL (33.0-37.0); Mean Corpuscular Hgb 30.9 pg (27.0-31.0); Mean Corpuscular Volume 92.3 fL (80.0-94.0); Mean Platelet Volume 8.8 fL (7.4-10.4); Nucleated Red Blood Cells % 0 % (-); Platelet Count 141 10^3/uL (130-400); Red Blood Cell Count 4.14 10^6/uL (4.70-6.10); Red Cell Dist. Width 13.2 % (11.5-14.5); White Blood Cell Count 4.7 10^3/uL (4.8-10.8)
[2024-12-06 15:55] LABS: ALT (SGPT) 25 U/L (0-50); AST (SGOT) 29 U/L (17-59); Albumin 3.8 g/dl (3.5-5.0); Alkaline Phosphatase 111 U/L (38-126); Blood Urea Nitrogen 34 mg/dl (9-20); Carbon Dioxide 25 mmol/L (22-30); Chloride 107 mmol/L (98-107); Glucose 141 mg/dl (70-99); Potassium 3.9 mmol/L (3.5-5.1); Sodium 143 mmol/L (135-145); Total Bilirubin 1.3 mg/dl (0.2-1.3); Total Protein 6.4 g/dl (6.3-8.2); eGFR 58.01
== END ==
LOC: REG 13:20
PROVIDERS: ATTENDING PHYSICIAN Internal Medicine Hematology & Oncology; FAMILY PHYSICIAN Internal Medicine
DX: C18.9 Malignant neoplasm of colon, unspecified (principal); C61 Malignant neoplasm of prostate
CPT/HCPCS: 36415; 80053; 85025

== ENCOUNTER → 2024-12-09 07:16 | Outpatient (REF) | payer MEDICARE, SELFPAY | LOC: RAD 07:16 | PROVIDERS: ATTENDING PHYSICIAN Internal Medicine Hematology & Oncology; FAMILY PHYSICIAN Internal Medicine | DX: C18.9 Malignant neoplasm of colon, unspecified (principal); C61 Malignant neoplasm of prostate | CPT/HCPCS: 71260; 74160; Q9967 ==

== ENCOUNTER 2024-12-16 10:28 | Emergency (ER) | payer MEDICARE, SELFPAY ==
[2024-12-16 10:35] VITALS: BP 100/55
--- NOTE | 2024-12-16 12:02 | ED.GENMED ---
History of Present Illness
General
Chief Complaint: Weakness
Source: patient
Exam Limitations: none
Time Seen by Provider: 12/16/24 11:50
History of Present Illness
History of Present Illness:
74-year-old male with history of A-fib on Eliquis and heart failure presents with generalized weakness. He was feeling okay yesterday and overnight his left jaw started to swell. Of note, 3 days ago he had beads placed in his prostate for
radiation therapy. He has history of colon cancer, prostate cancer. He is not a diabetic. He drove to his daughter's house today and after arriving he became semiunresponsive. He was awake but not responding to questions per his daughter. There
was no reported chills sweats or measurable fever at home
Past History
Past History
ED Past Medical History: CAD, HTN and Hypercholesterolemia
ED Past Surgical History: Cardiac
Social History
Alcohol: None
Drug: None
Personal: Single
Living: with family
Employment: Retired
Family History
Family History: Other
Phy Exam
Physical Exam
Physical Exam:
General: Well-appearing male no acute respiratory distress
HEENT normocephalic. There is swelling about the angle of the mandible on the left side. No obvious trismus posterior pharynx is patent no drooling there is a bad tooth noted at the left mandibular second molar
Neck is supple
Heart: Regular rate and rhythm
Lungs: Clear no wheeze
Abdomen is soft nontender
Course
Orders/Labs/Results
Orders:
Orders
12/16/24 12:00
CT Neck With Iv Contrast Urgent
Comment:
Reason For Exam: left jaw swelling, fever
Acetaminophen [Tylenol] 1,000 mg PO NOW STA
12/16/24 12:46
Complete Blood Count/With Diff Urgent
Comprehensive Metabolic Panel Urgent
Lactic Acid Q4H
Comment: CANCEL 2nd LACTIC ACID IF 1st LACTIC ACID IS LESS THAN 2
NT-proBNP Urgent
12/16/24 14:10
Urinalysis Reflex To Culture Urgent
Date Specimen was Collected: 12/16/24
Time Specimen was Collected: 12:09
Urine Microscopic Reflex Cult Urgent
Blood Culture Q30M
CLAY Source: Blood/Venous
Specimen Description:
Blood Culture Q30M
CLAY Source: Blood/Venous
Specimen Description:
12/16/24 14:35
Piperacillin/Tazo 3.375 Gram [Zosyn] 3.375 gram in 50 ml IV NOW
12/16/24 14:[address] Non Medication Order As Directed
Physician Order: Please ambulate the patient
Above order entered?: Yes
Abnormal Lab Results
12/16/24 12/16/24
12:46 14:10
RBC 3.92 L 10^6/uL
(4.70-6.10)
Hgb 12.1 L g/dL
(13.0-18.0)
Hct 34.6 L %
(39.0-52.0)
Plt Count 123 L 10^3/uL
(130-400)
Abs Immat Gran (auto) 0.1 H 10^3/uL
(0-0.05)
Absolute Neuts (auto) 8.6 H 10^3/uL
(1.4-6.5)
Absolute Lymphs (auto) 0.7 L 10^3/uL
(1.2-3.4)
Absolute Monos (auto) 1.1 H 10^3/uL
(0.1-0.6)
Neutrophils % 82.3 H %
(42.2-75.2)
Lymphocytes % 6.4 L %
(20.5-51.1)
Monocytes % 10.7 H %
(1.7-9.3)
Sodium 134 L mmol/L
(135-145)
BUN 26 H mg/dl
(9-20)
Creatinine 1.5 H mg/dL
(0.7-1.3)
Glucose 138 H mg/dl
(70-99)
Total Bilirubin 2.3 H mg/dl
(0.2-1.3)
Total Protein 5.9 L g/dl
(6.3-8.2)
Albumin 3.4 L g/dl
(3.5-5.0)
Ur Occult Blood Reflex 4+ A
(Negative)
Urine RBC 7-10 A /HPF
(0-2)
Urine Bacteria (Reflex) Few A
(Negative)
Urine Albumin (Reflex) 2+ A
(Neg - Trace)
12/16/24 12:46
12/16/24 12:46
Vital Signs
Initial and Last Documented VS:
Initial Vital Signs
Temp Pulse Resp BP Pulse Ox
100.3 F 79 20 100/55 97
12/16/24 10:35 12/16/24 10:35 12/16/24 10:35 12/16/24 10:35 12/16/24 10:35
Last Documented Vital Signs
Temp Pulse Resp BP Pulse Ox
100.3 F 70 14 100/62 96
12/16/24 10:35 12/16/24 14:30 12/16/24 14:30 12/16/24 14:09 12/16/24 14:30
MDM/Problems Addressed
Differential Diagnosis Includes:
Weakness. Patient had temperature of 100.3 at triage. Consider infectious source such as dental abscess but he also had recent prostate beads placed. Will obtain blood cultures labs give Tylenol for fever CT of neck pending
*Critical Care Note
Total Time (30-74mins, 75-104mins- exclusive of procedures): Not Applicable
Update Note
Update Note:
CT demonstrates soft tissue swelling the left mandible and potentially small tiny developing periapical abscess but no drainable collection. White count normal patient has been neurologically himself since arrival. Blood cultures are pending. He
feels well at the time of my reassessment. Was given a dose of Zosyn IV and ambulated. At this time no overwhelming indication for admission. Will continue with Augmentin for his dental infection and have him follow-up. Discussed with emergency
room attending
ED Attending Note
-
Portions of this chart may have been created with voice recognition software.� Occasional wrong word or��sound alike� substitutions may have occurred due to the inherent limitations of voice recognition software.
Discharge Plan
Departure
Patient Disposition: Home (Routine Discharge)
Date of Disposition: 12/16/24
Time of Disposition: 15:24
Patient with high blood pressure during this ER visit?: No
Discharge Problem:
Dental abscess
Instructions: Dental abscess
Prescriptions:
New
amoxicillin-pot clavulanate 875-125 mg tablet
1 tab PO BID Qty: 14 0RF
No Action
furosemide 40 MG tablet
40 mg PO DAILY
atorvastatin 40 MG tablet
40 mg PO QPM
carvedilol 6.25 MG tablet
6.25 mg PO BID
pantoprazole 40 MG tablet,delayed release (DR/EC)
20 mg PO DAILY
Eliquis 5 mg Tablet
5 mg PO BID
Entresto 49-51 mg Tablet
1 tab PO BID
Referrals:
Juan Oswald DO [Family Provider] -
Activity Restrictions/Additional Instructions:
Use antibiotics as directed. Continue with Tylenol as needed for pain or fever. Stay hydrated. Please return here for increasing fever weakness vomiting or other concerning finding. Follow-up with family doctor and dentist otherwise
Interventions
Interventions:
*Risk Screen - Suicide Last Done: 12/16/24 10:35
*General Assessment Last Done: 12/16/24 10:35
*Neglect/Abuse Screening Last Done: 12/16/24 10:35
*ED- Fall Risk Assessment Last Done: 12/16/24 12:13
*ED COVID-19 Vaccine History Last Done: 12/16/24 12:13
ED- Cardiac Assessment Last Done: 12/16/24 12:13
ED- Neurological Assessment Last Done: 12/16/24 12:13
ED- Pulmonary Assessment Last Done: 12/16/24 12:13
Discharge Date and Time
Print Language: BELIZEAN
[2024-12-16 12:13] VITALS: BMI 35.4
[2024-12-16] MEDS: TYLENOL 1000 MG PO (12:16)
[2024-12-16 12:19] VITALS: BP 114/61
[2024-12-16 12:53] LABS: % Eosinophils 0.1 % (0-6); % Immature Granulocytes 0.5 % (0-0.5); % Lymphocytes 6.4 % (20.5-51.1); % Monocytes 10.7 % (1.7-9.3); % Neutrophils 82.3 % (42.2-75.2); Absolute Immature Granulocytes 0.1 10^3/uL (0-0.05); Absolute Lymphocytes 0.7 10^3/uL (1.2-3.4); Absolute Monocytes 1.1 10^3/uL (0.1-0.6); Absolute Neutrophils 8.6 10^3/uL (1.4-6.5); Hematocrit 34.6 % (39.0-52.0); Hemoglobin 12.1 g/dL (13.0-18.0); Mean Corpuscular Hgb 30.9 pg (27.0-31.0); Mean Corpuscular Volume 88.3 fL (80.0-94.0); Mean Platelet Volume 9.2 fL (7.4-10.4); Nucleated Red Blood Cells % 0 % (-); Platelet Count 123 10^3/uL (130-400); Red Blood Cell Count 3.92 10^6/uL (4.70-6.10); Red Cell Dist. Width 13.6 % (11.5-14.5); White Blood Cell Count 10.4 10^3/uL (4.8-10.8)
[2024-12-16 13:00] VITALS: BP 101/61
[2024-12-16 13:10] LABS: Lactic Acid 0.8 mmol/L (0.7-2.0)
[2024-12-16 13:11] LABS: ALT (SGPT) 22 U/L (0-50); AST (SGOT) 25 U/L (17-59); Albumin 3.4 g/dl (3.5-5.0); Alkaline Phosphatase 120 U/L (38-126); Blood Urea Nitrogen 26 mg/dl (9-20); Carbon Dioxide 26 mmol/L (22-30); Chloride 103 mmol/L (98-107); Estimated Creatinine Clearance 58 ml/min; Glucose 138 mg/dl (70-99); Potassium 4.5 mmol/L (3.5-5.1); Sodium 134 mmol/L (135-145); Total Bilirubin 2.3 mg/dl (0.2-1.3); Total Protein 5.9 g/dl (6.3-8.2); eGFR 48.85
[2024-12-16 13:20] LABS: NT-proBNP 1510 pg/ml
[2024-12-16 14:09] VITALS: BP 100/62
[2024-12-16 14:30] LABS: Urine Albumin 2+ (Neg - Trace); Urine Bilirubin Negative (Negative); Urine Character Clear (Clear); Urine Color Yellow; Urine Glucose Negative (Negative); Urine Ketone Negative (Negative); Urine Leukocyte Negative (Negative); Urine Nitrite Negative (Negative); Urine Occult Blood 4+ (Negative); Urine Specific Gravity 1.015 (<1.030); Urine Urobilinogen Negative (Neg - 1+)
[2024-12-16 14:38] LABS: Urine Bacteria Few (Negative); Urine Mucus Many
[2024-12-16] MEDS: ZOSYN 50 IV (14:58)
[2024-12-16 15:00] VITALS: BP 109/61
== END 2024-12-16 16:01 | disposition home or self-care (01) ==
LOC: EMR 10:28
PROVIDERS: Physician Assistant; EMERGENCY PHYSICIAN Emergency Medicine; FAMILY PHYSICIAN Internal Medicine
DX: K04.7 Periapical abscess without sinus (principal); R53.1 Weakness; E78.00 Pure hypercholesterolemia, unspecified; I11.0 Hypertensive heart disease with heart failure; I50.9 Heart failure, unspecified; I48.91 Unspecified atrial fibrillation; I25.10 Atherosclerotic heart disease of native coronary artery without angina pectoris; Z79.01 Long term (current) use of anticoagulants; Z85.038 Personal history of other malignant neoplasm of large intestine; Z85.46 Personal history of malignant neoplasm of prostate
CPT/HCPCS: 96360; 99284; 70491; 80053; 81003; 81015; 83605; 83880; 85025; 87040; Q9967

== ENCOUNTER → 2024-12-20 13:47 | Outpatient (REF) | payer MEDICARE, SELFPAY ==
[2024-12-20 14:56] LABS: % Basophils 0.4 % (0-2); % Eosinophils 1.2 % (0-6); % Immature Granulocytes 1.2 % (0-0.5); % Lymphocytes 16.2 % (20.5-51.1); % Monocytes 10.6 % (1.7-9.3); % Neutrophils 70.4 % (42.2-75.2); Absolute Eosinophils 0.1 10^3/uL (0-0.7); Absolute Immature Granulocytes 0.1 10^3/uL (0-0.05); Absolute Lymphocytes 0.8 10^3/uL (1.2-3.4); Absolute Monocytes 0.5 10^3/uL (0.1-0.6); Absolute Neutrophils 3.5 10^3/uL (1.4-6.5); Hematocrit 34.6 % (39.0-52.0); Hemoglobin 12.2 g/dL (13.0-18.0); Mean Corp Hgb Conc. 35.3 g/dL (33.0-37.0); Mean Corpuscular Hgb 31.4 pg (27.0-31.0); Mean Corpuscular Volume 88.9 fL (80.0-94.0); Mean Platelet Volume 9.3 fL (7.4-10.4); Nucleated Red Blood Cells % 0 % (-); Platelet Count 150 10^3/uL (130-400); Red Blood Cell Count 3.89 10^6/uL (4.70-6.10); Red Cell Dist. Width 13.6 % (11.5-14.5)
[2024-12-20 15:18] LABS: ALT (SGPT) 32 U/L (0-50); AST (SGOT) 31 U/L (17-59); Albumin 3.7 g/dl (3.5-5.0); Alkaline Phosphatase 120 U/L (38-126); Blood Urea Nitrogen 22 mg/dl (9-20); Calcium 9.6 mg/dl (8.4-10.2); Carbon Dioxide 26 mmol/L (22-30); Chloride 105 mmol/L (98-107); Glucose 119 mg/dl (70-99); Potassium 4.8 mmol/L (3.5-5.1); Sodium 140 mmol/L (135-145); Total Bilirubin 1.3 mg/dl (0.2-1.3); Total Protein 6.3 g/dl (6.3-8.2); eGFR 58.01
== END ==
LOC: REG 13:47
PROVIDERS: ATTENDING PHYSICIAN Internal Medicine Hematology & Oncology; FAMILY PHYSICIAN Internal Medicine
DX: C18.9 Malignant neoplasm of colon, unspecified (principal); C61 Malignant neoplasm of prostate
CPT/HCPCS: 36415; 80053; 85025

== ENCOUNTER → 2025-01-20 07:06 | Outpatient (REF) | payer MEDICARE, SELFPAY | LOC: RCS 07:06 | PROVIDERS: ATTENDING PHYSICIAN Internal Medicine Cardiovascular Disease; FAMILY PHYSICIAN Internal Medicine | DX: I42.9 Cardiomyopathy, unspecified (principal) | CPT/HCPCS: 93306; Q9950 ==

== ENCOUNTER → 2025-01-27 10:13 | Outpatient (REF) | payer MEDICARE, SELFPAY ==
[2025-01-27 11:50] LABS: NT-proBNP 388 pg/ml
[2025-01-27 11:59] LABS: Vitamin D, 25-OH*** 39.6 ng/mL (30-80)
[2025-01-27 12:06] LABS: ALT (SGPT) 20 U/L (0-50); AST (SGOT) 23 U/L (17-59); Albumin 3.8 g/dl (3.5-5.0); Alkaline Phosphatase 100 U/L (38-126); Blood Urea Nitrogen 18 mg/dl (9-20); Calcium 9.7 mg/dl (8.4-10.2); Carbon Dioxide 30 mmol/L (22-30); Chloride 108 mmol/L (98-107); Glucose 124 mg/dl (70-99); HDL Cholesterol 69 mg/dl; LDL Cholesterol, Calculated 44 mg/dl; Potassium 4.6 mmol/L (3.5-5.1); Sodium 142 mmol/L (135-145); Total Bilirubin 1.3 mg/dl (0.2-1.3); Total Cholesterol 131 mg/dl (50-199); Total Protein 6.5 g/dl (6.3-8.2); Triglyceride 91 mg/dl (10-149); Very Low Density Lipoprotein 18 mg/dl (0-30); eGFR 58.01
[2025-01-27 12:13] LABS: TSH Reflex To Free T4 2.86 uIU/ml (0.47-4.68)
[2025-01-27 13:21] LABS: Glycohemoglobin (HgbA1c) 5.6 % (4.0-5.6)
== END ==
LOC: REG 10:13
PROVIDERS: ATTENDING PHYSICIAN Internal Medicine Cardiovascular Disease; FAMILY PHYSICIAN Internal Medicine
DX: R73.03 Prediabetes (principal); Z13.21 Encounter for screening for nutritional disorder; I10 Essential (primary) hypertension; I25.5 Ischemic cardiomyopathy; I48.0 Paroxysmal atrial fibrillation; E78.5 Hyperlipidemia, unspecified
CPT/HCPCS: 36415; 80053; 80061; 82306; 83036; 83880; 84443

== ENCOUNTER → 2025-04-04 15:44 | Outpatient (REF) | payer MEDICARE, SELFPAY | LOC: RAD 15:44 | PROVIDERS: ATTENDING PHYSICIAN Internal Medicine Hematology & Oncology; FAMILY PHYSICIAN Internal Medicine | DX: C61 Malignant neoplasm of prostate (principal); C18.9 Malignant neoplasm of colon, unspecified | CPT/HCPCS: 71260; 74177; Q9967 ==

== ENCOUNTER → 2025-05-03 13:29 | Outpatient (REF) | payer MEDICARE, SELFPAY ==
[2025-05-03 16:20] LABS: PSA, Total - Diagnostic 0.08 ng/ml (0.0-4.0)
== END ==
LOC: REG 13:29
PROVIDERS: ATTENDING PHYSICIAN Family Medicine Geriatric Medicine; FAMILY PHYSICIAN Internal Medicine
DX: Z12.5 Encounter for screening for malignant neoplasm of prostate (principal); C61 Malignant neoplasm of prostate
CPT/HCPCS: 36415; 84153

== ENCOUNTER → 2025-05-11 16:06 | Outpatient (REF) | payer MEDICARE, SELFPAY ==
[2025-05-11 11:28] LABS: Hematocrit 32.9 % (39.0-52.0); Hemoglobin 11.5 g/dL (13.0-18.0); Mean Corp Hgb Conc. 35.0 g/dL (33.0-37.0); Mean Corpuscular Volume 87.7 fL (80.0-94.0); Platelet Count 135 10^3/uL (130-400); Red Cell Dist. Width 14.1 % (11.5-14.5)
[2025-05-11 12:08] LABS: ALT (SGPT) 18 U/L (0-50); AST (SGOT) 21 U/L (17-59); Albumin 3.6 g/dl (3.5-5.0); Alkaline Phosphatase 108 U/L (38-126); Blood Urea Nitrogen 32 mg/dl (9-20); Calcium 9.6 mg/dl (8.4-10.2); Carbon Dioxide 26 mmol/L (22-30); Chloride 107 mmol/L (98-107); Glucose 109 mg/dl (70-99); Potassium 4.3 mmol/L (3.5-5.1); Sodium 137 mmol/L (135-145); Total Protein 6.2 g/dl (6.3-8.2); eGFR 48.85
[2025-05-11 12:49] LABS: CEA 2.32 ng/ml
== END ==
LOC: OIDL 16:06
PROVIDERS: ATTENDING PHYSICIAN Internal Medicine Hematology & Oncology
DX: C18.9 Malignant neoplasm of colon, unspecified (principal); C61 Malignant neoplasm of prostate
CPT/HCPCS: 80053; 82378; 85025

== ENCOUNTER 2025-06-28 06:33 | Day surgery (SDC) | payer MEDICARE, SELFPAY | END 2025-06-28 13:52 | disposition home or self-care (01) | LOC: GI 06:33 | PROVIDERS: ATTENDING PHYSICIAN Surgery | DX: Z12.11 Encounter for screening for malignant neoplasm of colon (principal); K64.4 Residual hemorrhoidal skin tags; K57.30 Diverticulosis of large intestine without perforation or abscess without bleeding; K64.8 Other hemorrhoids; D49.0 Neoplasm of unspecified behavior of digestive system; K63.3 Ulcer of intestine; Z98.0 Intestinal bypass and anastomosis status; Z85.038 Personal history of other malignant neoplasm of large intestine | CPT/HCPCS: 45380; 45381; 88305 ==

== ENCOUNTER → 2025-07-15 13:26 | Outpatient (REF) | payer MEDICARE, SELFPAY | LOC: RAD 13:26 | PROVIDERS: ATTENDING PHYSICIAN Surgery; FAMILY PHYSICIAN Internal Medicine | DX: K63.89 Other specified diseases of intestine (principal) | CPT/HCPCS: 74177; Q9967 ==

== ENCOUNTER 2025-07-22 06:08 | Inpatient (IN) | payer MEDICARE, SELFPAY ==
[2025-07-13 11:03] LABS: Hematocrit 39.5 % (39.0-52.0); Hemoglobin 13.4 g/dL (13.0-18.0); Mean Corp Hgb Conc. 33.9 g/dL (33.0-37.0); Mean Corpuscular Volume 88.4 fL (80.0-94.0); Platelet Count 161 10^3/uL (130-400); Red Cell Dist. Width 15.0 % (11.5-14.5)
[2025-07-13 11:08] LABS: APTT 33.1 Sec (23.4-35.0); INR 1.12; PT 14.9 Sec (11.4-14.6)
[2025-07-13 11:15] LABS: ALT (SGPT) 21 U/L (0-50); AST (SGOT) 25 U/L (17-59); Albumin 4.2 g/dl (3.5-5.0); Alkaline Phosphatase 117 U/L (38-126); Blood Urea Nitrogen 26 mg/dl (9-20); Calcium 9.9 mg/dl (8.4-10.2); Carbon Dioxide 30 mmol/L (22-30); Chloride 105 mmol/L (98-107); Glucose 111 mg/dl (70-99); Potassium 4.1 mmol/L (3.5-5.1); Sodium 139 mmol/L (135-145); Total Protein 7.1 g/dl (6.3-8.2); eGFR 41.78
[2025-07-13 11:52] LABS: CEA 2.71 ng/ml
[2025-07-13 12:00] LABS: Glycohemoglobin (HgbA1c) 5.5 % (4.0-5.9)
[2025-07-13 14:10] VITALS: BMI 35.8
[2025-07-22] VITALS (12 sets, daily range): BP systolic 100–120; BP diastolic 46–72; BMI 35.8
[2025-07-22] MEDS: LYRICA 150 MG PO (07:05)
[2025-07-22] MEDS: TYLENOL 1000 MG PO ×4 (07:06→23:55)
[2025-07-22] MEDS: HEPARIN 5000 UNITS SC (07:06)
[2025-07-22] MEDS: NORMOSOL-R/PLASMALYTE-A 1000 IV ×2 (07:06→12:34)
[2025-07-22] MEDS: RELISTOR 12 MG SC (07:08)
--- NOTE | 2025-07-22 11:23 | W.IMMPOSTOP ---
Addendum entered and electronically signed by Hany Kemp MD 07/22/25 11:46:
Updated daughter over the phone
Original Note:
Surgical Immed Post Op Note
-
Primary Surgeon: Hany Kemp MD
Assisting Surgeon: KELLEY Curry
Pre-op Diagnosis: Ileocecal valve mass
Post-op Diagnosis: Ileocecal valve mass
Procedure Performed: Robotic right hemicolectomy, lysis of adhesions, mesenteric angiography, laparoscopic TAP block
Anesthesia Type: General
Specimen / Cultures: Ascending colon with terminal ileum
Estimated Blood Loss: 50 mL
Complications: None
Operative Findings: Tattoo seen in the proximal ascending colon; procedure somewhat difficult due to the mesenteric adiposity, otherwise uneventful; performed intracorporeal isoperistaltic ileocolic anastomosis to the hepatic flexure
--- NOTE | 2025-07-22 11:25 | OR.RPT ---
Operative Report
Operative Report
DATE OF OPERATION: 07/22/2025
SURGEON: Hany Kemp MD
PREOPERATIVE DIAGNOSIS: Ileocecal valve mass
POSTOPERATIVE DIAGNOSIS: Ileocecal valve mass
OPERATION: Robotic right hemicolectomy, adhesiolysis greater than 30 minutes, mesenteric angiography with ICG, laparoscopic TAP block
ASSISTANTS:
1. KELLEY Curry
ANESTHESIA: General
ESTIMATED BLOOD LOSS: 50 mL
UOP: 200 mL
IVF: 1.5 L
FINDINGS:
1. Tattoo identified in the proximal ascending colon
2. Divided terminal ileum at 10 cm proximal to the IC valve and divided the colon at the level of the proximal transverse; performed intracorporeal isoperistaltic [id number] stapled anastomosis
SPECIMENS:
1. Ascending colon with terminal ileum
DRAINS: None
COMPLICATIONS: No immediate complications.
INDICATIONS: The patient is a 75-year-old male who has a history of sigmoid colon cancer and underwent robotic sigmoidectomy December 2023. He was also diagnosed with prostate cancer and had undergone radiation therapy. On his first surveillance
colonoscopy, he was found to have a mass in the ileocecal valve, about 1 to 2 cm in size, that was not endoscopically resectable. Biopsies showed ulceration, but were likely insufficient. Options were discussed and the patient elected to proceed
with surgery. The operation was discussed with the patient and patient's daughter in detail, including the risks, benefits and alternatives. Risks described included, but not limited to, bleeding, infection, anastomotic leak, damage to nearby
structures (i.e.- bowel, bladder, solid organ injury, ureter), need for ostomy creation, conversion to open, incisional hernia, inability to remove the entire cancer, future recurrence or metastasis and anesthetic risks, including but not limited to
ID, stroke, DVT/PE, respiratory failure and other organ failure. The patient understood and agreed to proceed.
PROCEDURE IN DETAIL: The patient was taken to the operating room and placed on the operating table in supine position. Sequential compression devices were placed bilaterally. General anesthesia was induced and the patient was intubated without
complication. Bilateral arms were tucked. Cruz catheter was placed with sterile technique. Anesthesia placed an orogastric tube. IV Ancef and Flagyl were given preincision. The abdomen was shaved, prepped and draped in a sterile fashion. A
marking pen was used to daya out the midline. A time-out was performed verifying the correct patient, procedure, operative site, positioning, and special equipment.
At Dumont's point, using an 11 blade scalpel, an 8 mm incision was made. A Veress needle was used to obtain abdominal access. After 3 clicks, insufflation was initiated and the opening pressure was noted to be less than 8 mmHg. The abdomen was
insufflated to a pressure of 12, which the patient tolerated well. The 8 mm robotic trocar was introduced and the robotic endoscope advanced. No injury from initial Veress placement or port placement was noted. The abdomen was explored. The
tattoo that I had placed during the colonoscopy was easily visualized in the proximal ascending colon. Due to the body habitus and size of the torso, visualizing the liver was difficult, but from what was seen, there were no superficial lesions.
There were no concerning peritoneal lesions.
In a diagonal fashion from the planned Pfannenstiel incision to the Dumont's point incision, 2 more robotic trocars were placed under direct visualization taking care to avoid injury to the epigastric vessels. An assist port was placed in the left
lateral abdomen under direct visualization as well. Then, a 4 cm Pfannenstiel incision was made with a 15 blade scalpel 2 fingerbreadths superior to the pubic symphysis. I took this down to the level of fascia with Bovie electrocautery and
hemostasis was assured. The anterior fascia was incised with electrocautery and extended to just beyond the length of the Pfannenstiel incision on each side. Using Macarena's, the anterior fascia was grasped and elevated. The attachments to the
rectus muscle were taken down bluntly and attachments to the midline were taken down with electrocautery. This was done both superiorly and inferiorly to our incision. The midline was split, first with electrocautery and then with Kellys to spread
the rectus muscle. The preperitoneal fat was and the peritoneum was grasped and elevated. The peritoneum was divided with Metzenbaum scissors and the abdomen was entered. The peritoneum was opened superiorly and inferiorly to the extent
that our incision would allow, taking care to avoid injury to the bladder. A small Tim was placed and a port cap attached. The 12 mm robotic port was placed through the port cap. The patient was placed in [id number] with slight
Trendelenburg. The robot was docked from the patient's right side. From the Pfannenstiel to Dumont's point, the instruments introduced were the bipolar grasper, camera, scissors and tip up grasper.
To begin, I grasped and elevated the cecum. However, this was hindered due to the RLQ adhesions. Therefore, I performed adhesiolysis to free up the cecum and terminal ileum. I swept the small bowel towards the pelvis. I retracted the transverse
colon. The ileocolic pedicle appeared nicely exposed. A medial to lateral mobilization was performed by incising the peritoneal lining just below the pedicle using the robotic scissors. I elevated the pedicle anteriorly and swept the retroperitoneum
down bluntly in order to identify the duodenum. However, I did not immediately identify the ileocolic pedicle due to the amount of adiposity within the mesentery. After some additional dissection, I switched to a lateral to medial approach. I
retracted the cecum towards the left upper quadrant and took down the lateral attachments and attachments to the retroperitoneum with the vessel sealer. There was inflammatory reaction related to the tattoo, making this dissection a little more
difficult. I continued this mobilization to about the distal ascending colon. I switched back to the medial to lateral approach. With the sub-mesenteric space open, I was now easily able to identify the ileocolic pedicle. Once the duodenum was
swept away from the takeoff of the ileocolic pedicle, I isolated the ileocolic pedicle circumferentially and performed a high ligation using the vessel sealer. The ileocolic stump was hemostatic. I continued my medial to lateral dissection up to
the hepatic flexure, taking care to avoid injury to the duodenum, right kidney and right ureter.
I turned my attention to the transverse colon. I grasped and elevated the omentum while retracting the transverse colon caudally. I divided the gastrocolic ligament and entered the lesser sac. This was confirmed by visualizing the posterior wall of
the stomach. I carried this dissection around the hepatic flexure using a combination of blunt dissection and the vessel sealer, taking care to avoid injury to the liver, gallbladder, duodenum and pancreas. I connected to my previous dissection. At
this point, the entire cecum, right colon and hepatic flexure were nicely mobilized. I selected a point on the small bowel about 15 cm proximal from the ileocecal valve and elevated this with my tip up grasper. I grasped the transected ileocolic
pedicle on the specimen side and used the vessel sealer to serially ligate the mesentery up to my selected point on the terminal ileum. I stapled and divided the terminal ileum with the 60 mm robotic stapler with a blue load.
I grasped the proximal transverse colon and elevated this in order to expose and visualize the mesentery. I serially divided the mesentery towards this point, taking care to avoid injury to the duodenum and pancreas. There was no apparent right
colic artery. Due to his prior sigmoidectomy and division of the ALHAJI, his history of atherosclerotic disease and because my margin from the ileocecal valve was greater than 10 cm, I decided to preserve the right branch of the middle colic to reduce
the risk of ischemia to the remaining colon. Anesthesia injected ICG and I confirmed adequate perfusion to my intended transection point. Using the 60 mm robotic stapler with a blue load, I stapled and divided the transverse colon. The specimen
was extracted. Due to the size of the colon and bulk of the mesentery, I had to enlarge the Pfannenstiel to about 6 cm in length. I was able to palpate a 1 to 2 cm mass at the ileocecal valve. The specimen was passed off for pathology.
I examined the bowel for my future anastomosis. I placed the terminal ileum adjacent to the proximal transverse colon. This aligned nicely for a [id number] isoperistaltic anastomosis without any evidence of tension. I upsized the LUQ port to a
12 mm robotic port. I created a colotomy at about 7 cm distal to the staple line on the transverse colon and a enterotomy 2 cm proximal to the staple line on the terminal ileum. I advanced the 60 mm robotic stapler with a white load through the
bowel openings, ensured ideal alignment and fired. After the robotic stapler was withdrawn, no bleeding was noted from the staple line. The common defect was closed using a 3-0 V-loc suture in 2 layers, starting from the superior aspect and sewing
inferiorly in a running baseball fashion, and then superiorly in a running Libra fashion in order to imbricate the first layer.
After the anastomosis was complete, the operative field was examined. There was complete hemostasis, no bowel herniating through the mesenteric defect and good perfusion to our anastomosis without any evidence of tension. The greater omentum was
grasped and evaluated and appeared well-vascularized. The omentum was draped over the anastomosis.
The instruments were removed and the robot was undocked. The fascia of the LUQ port was closed using a suture passer and a 0 Vicryl suture. A TAP block was performed under laparoscopic guidance. 15mL of 0.25% Marcaine with epinephrine and
dexamethasone was injected bilaterally. The ports were removed under direct visualization and no bleeding was noted. The abdomen was allowed to desufflate. The Pfannenstiel incision was closed in layers. Using an 0 Vicryl stitch, the peritoneum
was closed in a running fashion. The fascia was closed with an 0 Stratafix suture. The incisions were irrigated and injected with the remaining 30mL of local. The skin of the incisions were closed with a 4-0 Monocryl in running subcuticular
fashion and dressed with Dermabond.
At this point, the procedure was complete. The patient was awoken and extubated without complication. All needle, sponge and instrument counts were reported as correct. The patient tolerated the procedure well and was transferred to the recovery
room in stable condition with the cruz in place.
DICTATED BY: Hany Kemp MD
[2025-07-22 11:38] LABS: Glucose - Point of Care 139 mg/dl (70-99)
--- NOTE | 2025-07-22 12:57 | PTCARENOTE ---
pt aaox3. states 3/10 pain in abd. tylenol given. nc4l breath sounds diminished at base. cruz care done. 4 lap sites and lower abd inc noted matt with glue. hypoactive bowel sounds.
[2025-07-22] MEDS: LIPITOR 40 MG PO (17:23)
[2025-07-22] MEDS: ENTRESTO 49 MG/51 MG 1 TAB PO (20:33)
[2025-07-22] MEDS: COREG 6.25 MG PO (20:33)
[2025-07-23 03:18] VITALS: BP 102/62
[2025-07-23] MEDS: TYLENOL PO (05:41)
[2025-07-23 06:00] VITALS: BMI 37.6
[2025-07-23 06:29] LABS: Hematocrit 31.0 % (39.0-52.0); Hemoglobin 10.7 g/dL (13.0-18.0); Mean Corp Hgb Conc. 34.5 g/dL (33.0-37.0); Mean Corpuscular Volume 88.1 fL (80.0-94.0); Nucleated Red Blood Cells % 0 % (-); Platelet Count 130 10^3/uL (130-400); Red Cell Dist. Width 14.7 % (11.5-14.5)
[2025-07-23 06:55] LABS: Blood Urea Nitrogen 27 mg/dl (9-20); Calcium 8.3 mg/dl (8.4-10.2); Carbon Dioxide 25 mmol/L (22-30); Chloride 102 mmol/L (98-107); Estimated Creatinine Clearance 63 ml/min; Glucose 135 mg/dl (70-99); Magnesium 2.3 mg/dl (1.6-2.3); Potassium 4.3 mmol/L (3.5-5.1); Sodium 133 mmol/L (135-145); eGFR 52.74
[2025-07-23 07:10] VITALS: BP 115/63
[2025-07-23] MEDS: NORMOSOL-R/PLASMALYTE-A 1000 IV (07:34)
[2025-07-23] MEDS: COREG 6.25 MG PO ×2 (08:53→20:49)
[2025-07-23] MEDS: FARXIGA 10 MG PO (08:53)
[2025-07-23] MEDS: ENTRESTO 49 MG/51 MG 1 TAB PO ×2 (08:53→20:48)
[2025-07-23] MEDS: RELISTOR 12 MG SC (08:54)
[2025-07-23] MEDS: TYLENOL 1000 MG PO ×3 (12:06→23:12)
--- NOTE | 2025-07-23 12:44 | CM ---
CM following re: discharge planning.
Reviewed pt's chart, met with pt and pt's daughter at bedside.
Pt is a 75 year old male, admitted with primary dx of POD#1 Robotic right hemicolectomy, lysis of adhesions, mesenteric angiography, laparoscopic TAP block
Pt reports he lives alone in an apartment, has 2 supportive children. Pt described himself as independent in all areas [employer]. No DME, VN or SNF history.
D/C plan: home with anticipated no needs. Daughter to transport at discharge.
CM will follow with discharge plan updates as hospitalization progresses
[2025-07-23 14:54] LABS: Hematocrit 34.7 % (39.0-52.0); Hemoglobin 11.5 g/dL (13.0-18.0); Mean Corp Hgb Conc. 33.1 g/dL (33.0-37.0); Mean Corpuscular Volume 92.0 fL (80.0-94.0); Platelet Count 140 10^3/uL (130-400); Red Cell Dist. Width 15.0 % (11.5-14.5)
--- NOTE | 2025-07-23 14:56 | W.PN.CRS1 ---
Today's Communication / Plan
-
As below
Assessment/Plan
-
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
his first surveillance colonoscopy from his cancer diagnosis. He presents for elective surgery
POD 1 robotic RHC, TRAY, laparoscopic TAP block
AFVSS
WBC 12.8 from 10.0, Hb 11.5 from 10.7 from 13.4, CR 1.4
� Slight elevation in leukocytosis likely related to postsurgery, no fevers or concerning symptoms
� Continue regular diet
� Pain control with Tylenol, oxycodone and Dilaudid as needed, continue Relistor
� Repeat Hb this afternoon stable, okay for DVT PPx with Lovenox; hold Eliquis until tomorrow
� Encourage I-S/OOB/ambulate 3 times daily
� DC Del Real monitor for void
Dispo�if voiding, passing flatus and tolerating diet, okay for DC; possibly this afternoon versus tomorrow
Subjective Data
Subjective Data
Date of Service: July 23, 2025
No overnight events. Denies N/V and has tolerated solid food. Pain is controlled. Denies flatus or BMs yet. Del Real was removed and is still waiting to urinate (as of 10 AM).
Objective Data
-
Vital Signs
Temp Pulse Resp BP Pulse Ox
97.6 F 72 16 115/63 94
07/23/25 07:10 07/23/25 07:10 07/23/25 07:10 07/23/25 07:10 07/23/25 09:17
Intake & Output
07/22/25 07/23/25 07/24/25
06:59 06:59 06:59
Intake Total 1130 / 1130
Output Total 1150 / 1150
Balance -20 / -20
Intake:
Oral fluids 480 / 480
IV fluids (Total) 650 / 650
Normosol 300 / 300
Output:
Urine, Del Real 1150 / 1150
Lab Results
07/23/25 14:15
07/23/25 05:45
Physical Exam
-
General: No Acute Distress and AOx3
HEENT: Grossly Normal
Abdomen: Soft, Non Distended and Tender (Appropriately tender, no rebound or guarding)
Neurological: Other (A&O x 3)
Skin: Warm and Dry
Wound: Other (Incisions well-approximated without erythema or drainage, covered with Dermabond)
[2025-07-23 15:05] VITALS: BP 106/51
[2025-07-23] MEDS: LIPITOR 40 MG PO (18:01)
[2025-07-23 23:05] VITALS: BP 132/49
[2025-07-24 03:00] VITALS: BP 111/43
[2025-07-24 05:40] LABS: Hematocrit 34.0 % (39.0-52.0); Hemoglobin 11.5 g/dL (13.0-18.0); Mean Corp Hgb Conc. 33.8 g/dL (33.0-37.0); Mean Corpuscular Volume 88.1 fL (80.0-94.0); Platelet Count 141 10^3/uL (130-400); Red Cell Dist. Width 15.4 % (11.5-14.5)
[2025-07-24 05:54] LABS: Blood Urea Nitrogen 29 mg/dl (9-20); Calcium 8.7 mg/dl (8.4-10.2); Carbon Dioxide 32 mmol/L (22-30); Chloride 101 mmol/L (98-107); Estimated Creatinine Clearance 55 ml/min; Glucose 118 mg/dl (70-99); Potassium 3.9 mmol/L (3.5-5.1); Sodium 134 mmol/L (135-145); eGFR 44.93
[2025-07-24 06:00] VITALS: BMI 36.6
[2025-07-24] MEDS: TYLENOL 1000 MG PO (06:12)
[2025-07-24 07:05] VITALS: BP 122/56
[2025-07-24] MEDS: COREG 6.25 MG PO (07:59)
[2025-07-24] MEDS: RELISTOR 12 MG SC (07:59)
[2025-07-24] MEDS: FARXIGA 10 MG PO (07:59)
[2025-07-24] MEDS: ENTRESTO 49 MG/51 MG 1 TAB PO (07:59)
[2025-07-24] MEDS: ZOFRAN 4 MG IV (08:07)
[2025-07-24] MEDS: NORMOSOL-R/PLASMALYTE-A 1000 IV (08:07)
[2025-07-24 11:00] VITALS: BP 122/61
[2025-07-24] MEDS: TYLENOL PO ×2 (12:53→18:10)
--- NOTE | 2025-07-24 13:02 | W.PN.CRS1 ---
Today's Communication / Plan
-
npo with ivfs
abdominal xray
compazine
Assessment/Plan
-
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
his first surveillance colonoscopy from his cancer diagnosis. He presents for elective surgery
POD 2 robotic RHC, TRAY, laparoscopic TAP block
AFVSS
WBC 9.5 (12.8, 10.0), Hb 11.5 (11.5, 10.7 from 13.4, CR 1.6 (1.4)
� NPO with IVFS
- Abdominal xray ordered
- Low threshold for NGT if continues to vomit
- Add compazine
� Pain control with Tylenol, oxycodone and Dilaudid as needed, continue Relistor
� Repeat Hb this afternoon stable, okay for DVT PPx with Lovenox; hold Eliquis for now
� Encourage I-S/OOB/ambulate 3 times daily
Subjective Data
Subjective Data
Date of Service: July 24, 2025
Patient vomited last night. He is a little more distended today. His abdominal pain comes and goes. Denies flatus today and no bowel movements.
Objective Data
-
Vital Signs
Temp Pulse Resp BP Pulse Ox
98.2 F 71 16 122/61 94
07/24/25 11:00 07/24/25 11:00 07/24/25 11:00 07/24/25 11:00 07/24/25 11:00
Intake & Output
07/23/25 07/24/25 07/25/25
06:59 06:59 06:59
Intake Total 1130 / 1130 3120 / 3120
Output Total 1150 / 1150 2100 / 2100
Balance -20 / -20 1020 / 1020
Intake:
Oral fluids 480 / 480 1920 / 1920
IV fluids (Total) 650 / 650 1200 / 1200
Normosol 300 / 300
Output:
Urine, Del Real 1150 / 1150 500 / 500
Urine, Voided 1600 / 1600
Other:
Number of immeasurable emeses? 2
Lab Results
07/24/25 05:05
07/24/25 05:05
Physical Exam
-
General: No Acute Distress and AOx3
Abdomen: Soft, Distended (mild) and Non Tender
Skin: Warm and Dry
--- NOTE | 2025-07-24 14:59 | CON.HOSP ---
Addendum entered and electronically signed by Fouzia Jarvis MD 07/24/25 15:40:
X ray abdomen reviewed by me- Ileus
Original Note:
Consultation
-
Date/Time Consultation Requested: 07/24/25 2.20 pm
Date/Time Consultation Performed: 07/24/25 3 pm
Requesting Provider: Dr.Michael Kemp
Performing Provider: Dr.Jiji Jarvis
Reason for Consultation: Medical Management
Family Physician
-
Family Physician: Juan Oswald
Chief Complaint
-
Medical management
History of Present Illness
75-year-old man had a right hemicolectomy (Patient had a routine colonoscopy and found this mass) today is postop day 2. He vomited therefore n.p.o. now. There was concern that he might be developing an ileus. Patient has other medical problems
Htay cardiomyopathy, coronary disease, CKD, A-fib, CVA, hypertension hyperlipidemia.
Medical History
Past Medical History
Past Medical History: Reports Other
Additional Past Medical History:
History of CVA, sleep apnea, atrial fibrillation, cardiomyopathy, CHF, coronary artery disease, AICD, hypertension, hyperlipidemia, PVD, GERD, history of colon cancer, CKD stage III, depression
Past Surgical History: Reports Other
Additional Past Surgical History:
CABG, AICD, robotic sigmoidectomy, subcu port placement
Social History
Tobacco: Non-smoker
Alcohol: None
Drug: None
Personal:
Living: With Family
Family History
Family History: Cancer (Mother stomach cancer) and Other (Father from lung disease)
Allergies / Home Medications
Allergies reflects when Allergies were last updated in [facility].
Home Medications with original date entered in [facility]
Allergy/Medication List:
Allergies
Allergy/AdvReac Type Severity Reaction Status Date / Time
No Known Allergies Allergy Verified 07/22/25 06:51
Home Medications
atorvastatin 40 mg tablet 40 mg PO QPM High Cholesterol 09/10/18
carvedilol 6.25 mg tablet 6.25 mg PO BID Blood Pressure 09/10/18
furosemide 40 mg tablet 40 mg PO DAILY Fluid Retention/Swelling 09/10/18
apixaban 5 mg tablet (Eliquis) 5 mg PO BID Blood Clot Prevention/Tx 12/16/24
sacubitril 49 mg-valsartan 51 mg tablet (Entresto) 1 tab PO BID Heart Failure 12/16/24
empagliflozin 10 mg tablet (Jardiance) 10 mg PO DAILY Diabetes 07/18/25
metronidazole 500 mg tablet 500 mg PO PRE OP PROPHYLAXIS 07/18/25
neomycin 500 mg tablet 500 mg PO PRE OP PROPHYLAXIS 07/18/25
peg 3350-electrolytes 236 gram-22.74 gram-6.74 gram-5.86 gram solution (Golytely) 240 ml PO PRE OP PRE-OP 07/18/25
Review of Systems
-
A 12 point Review of Systems was completed except as noted: Yes
Respiratory: Denies Trouble Breathing
Cardiac: Denies Chest Pain
Abdomen/GI: Reports Nausea, Vomiting and Constipated
Physical Exam
Vital Signs
Vital Signs
Temp Pulse Resp BP Pulse Ox
98.2 F 71 16 122/61 94
07/24/25 11:00 07/24/25 11:00 07/24/25 11:00 07/24/25 11:00 07/24/25 11:00
Physical Exam
General: No Apparent Distress and Comfortable
Cardiac: S1/S2 and Regular Rhythm
GI: Soft and Other (lap wounds stable); Negative Normal Bowel Sounds or Tender
Musculoskeletal: No Edema
Skin: Warm
Neuro: Awake, AO x 3 and No Motor Deficits
Psych: Intact Judgement
Laboratory Results
-
Laboratory Results
07/24/25 05:05
07/24/25 05:05
PT 14.9 Sec (11.4-14.6) H 07/13/25 09:45
INR 1.12 07/13/25 09:45
APTT 33.1 Sec (23.4-35.0) 07/13/25 09:45
Total Bilirubin 1.5 mg/dl (0.2-1.3) H 07/13/25 09:45
AST 25 U/L (17-59) 07/13/25 09:45
ALT 21 U/L (0-50) 07/13/25 09:45
Alkaline Phosphatase 117 U/L (38-126) 07/13/25 09:45
Impression / Plan
-
IMPRESSION/PLAN:
CT of the chest-12/13/2024-no acute disease. Severe atherosclerotic vascular disease. 3 mm right lower lobe pulmonary nodule stable from October 2023
# Vomiting
X-ray of the abdomen-
Possibly might be developing an ileus
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
Management per colorectal surgeon
Currently n.p.o. secondary to above
# Mild hyponatremia-follow while on IV fluids
# Acute kidney injury on CKD stage III-gentle hydration. Bladder scan
# Coronary disease history of CABG 2017
# Chronic HFrEF, ischemic cardiomyopathy with history of AICD placement ( MRI Conditional) in 2018-hold Rola White. Add beta-blockers IV. Hold Lasix since n.p.o.
Echo 01/20/2025-dilated LV. Mild concentric LVH. Akinesis of the basal to mid inferolateral wall. Abnormal paradoxical septal motion consistent with RV pacemaker. Mildly reduced LV systolic function. EF 40 to 45%. ICD wire in the RV. Mild TR.
PA pressure 30 to [address] Pam Ruby
Cautious IVF
# Paroxysmal atrial fibrillation-holding Eliquis per surgeon. Add beta-blockers IV. Does not seem to be on amiodarone anymore per current medications list.
# Ehvkwkoknyhb-uvva-hunmzonv IV. Hold Entresto
# Hyperlipidemia/atherosclerosis-hold statin as n.p.o.
# History of CVA 2018
# History of sleep apnea-not on CPAP. Patient states that it was recalled and he did not explore a new one. Importance of getting back on CPAP discussed with the patient and
# Peripheral vascular disease
# History of prostate cancer with history of radiation treatment ( Sees )
# History of adenocarcinoma of colon status post robotic sigmoidectomy December 2023 and 6 months ( 12 cycles) of FOLFOX chemotherapy finished 08/30/2024
# Diverticulosis
# Bilateral fat-containing inguinal hernias, small fat-containing umbilical hernia
# Fatty liver per previous imaging
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
# GERD-PPI
# Obesity per BMI 36
# DVT prophylaxis- Add Lovenox
# Full code
Discussed with at bedside
Thank you for the consultation we will follow the patient with you
Part of this note was created using voice recognition system. Occasional wrong word or��sound alike� substitutions may have inadvertently occurred due to the inherent limitations of voice recognition software. If noted kindly bring it to my
attention for correction.
[2025-07-24 15:00] VITALS: BP 131/63
[2025-07-24] MEDS: NSS 1000 IV (18:07)
[2025-07-24] MEDS: LOVENOX 40 MG SC (18:08)
[2025-07-24] MEDS: LOPRESSOR 2.5 MG IV (18:08)
[2025-07-24 19:02] VITALS: BP 115/43
[2025-07-24 23:00] VITALS: BP 126/61
[2025-07-25] MEDS: TYLENOL PO ×2 (00:23→05:17)
[2025-07-25] MEDS: LOPRESSOR 2.5 MG IV (00:23)
[2025-07-25 03:00] VITALS: BP 97/36
[2025-07-25] MEDS: NSS 1000 IV (04:29)
[2025-07-25 04:32] VITALS: BMI 36.5
[2025-07-25] MEDS: LOPRESSOR IV (05:16)
[2025-07-25 07:25] VITALS: BP 108/50
[2025-07-25 08:00] LABS: Blood Urea Nitrogen 28 mg/dl (9-20); Calcium 8.8 mg/dl (8.4-10.2); Carbon Dioxide 28 mmol/L (22-30); Chloride 107 mmol/L (98-107); Estimated Creatinine Clearance 58 ml/min; Glucose 101 mg/dl (70-99); Potassium 4.3 mmol/L (3.5-5.1); Sodium 141 mmol/L (135-145); eGFR 48.55
[2025-07-25 08:09] LABS: Hematocrit 35.8 % (39.0-52.0); Hemoglobin 11.4 g/dL (13.0-18.0); Mean Corp Hgb Conc. 31.8 g/dL (33.0-37.0); Mean Corpuscular Volume 92.3 fL (80.0-94.0); Nucleated Red Blood Cells % 0 % (-); Platelet Count 152 10^3/uL (130-400); Red Cell Dist. Width 15.7 % (11.5-14.5)
--- NOTE | 2025-07-25 09:59 | W.PN.CRS1 ---
Today's Communication / Plan
-
improving, clears to regular diet
continue to hold eliquis for now
Assessment/Plan
-
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
his first surveillance colonoscopy from his cancer diagnosis. He presents for elective surgery
POD #3 robotic RHC, TRAY, laparoscopic TAP block
AFVSS
WBC 8.1 (9.5, 12.8, 10.0), Hb 11.4 (11.5, 11.5, 10.7 from 13.4, CR 1.6 (1.4)
� Advance to clears for breakfast and then regular for lunch if tolerating.
- D/C IVFs when tolerating a regular diet
� Pain control with Tylenol, oxycodone and Dilaudid as needed, continue Relistor
� DVT PPx with Lovenox; hold Eliquis for now- likely start tomorrow
- OR pathology pending
- OOB as tolerated
- Appreciate hospitalist
Subjective Data
Subjective Data
Date of Service: July 25, 2025
Patient states he feels much better today. He had a large amount of liquid stool. He has flatus. Denies nausea or vomiting. He does not feel bloated. He states he is very hungry.
Objective Data
-
Vital Signs
Temp Pulse Resp BP Pulse Ox
98.3 F 72 16 108/50 96
07/25/25 07:25 07/25/25 07:25 07/25/25 07:25 07/25/25 07:25 07/25/25 07:25
Intake & Output
1107/25/25 07/26/25
06:59 06:59 06:59
Intake Total 3120 / 3120 1660 / 1660
Output Total 2100 / 2100 300 / 300
Balance 1020 / 1020 1360 / 1360
Intake:
Oral fluids 1920 / 1920 960 / 960
IV fluids (Total) 1200 / 1200 700 / 700
Output:
Urine, Del Real 500 / 500
Urine, Voided 1600 / 1600 300 / 300
Other:
Number of approximated MODERATE 2
amounts of urine
Number of immeasurable emeses? 2
Number of unmeasured liquid
stools
Rectum 2
Lab Results
07/25/25 07:11
07/25/25 07:11
Physical Exam
-
General: No Acute Distress and AOx3
Abdomen: Soft, Non Distended and Non Tender
Skin: Warm and Dry
Incision: Clear, Dry, Intact
[2025-07-25] MEDS: RELISTOR 12 MG SC (10:09)
[2025-07-25] MEDS: TYLENOL 1000 MG PO ×3 (10:10→23:41)
--- NOTE | 2025-07-25 10:45 | W.PN.HOSP.TC ---
Today's Communication/Plan
-
Switch beta-fernando to oral Coreg
Start on Lasix
Follow creatinine
Will hold on discharge from medical standpoint today.
Assessment / Plan
Assessment / Plan
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
Management per colorectal surgeon
Diet getting advanced.
#Chronic HFrEF, ischemic cardiomyopathy with history of AICD placement ( MRI Conditional) in 2018
Echo 01/20/2025-dilated LV. Mild concentric LVH. Akinesis of the basal to mid inferolateral wall. Abnormal paradoxical septal motion consistent with RV pacemaker. Mildly reduced LV systolic function. EF 40 to 45%. ICD wire in the RV. Mild TR.
PA pressure 30 to 35 mmHg.
Patient without any respiratory symptoms but increased weight gain. Clinically no lower extremity edema no JVD. Decreased breath sounds at bases.
Lasix was on hold which I will resume today. Continue to hold Farxiga and Entresto to facilitate diuresis.
Resume Coreg. DC IV Lopressor.
# Mild hyponatremia-improved
#CKD stage III
Creatinine from some of this year is 1.3-1.5.
Today's creatinine is 1.5.
No hyperkalemia or acidosis.
Restart Lasix and follow creatinine. Hold Entresto for now.
Check bladder scans.
# Coronary disease history of CABG 2018
Will restart statins once oral intake is adequate.
# Paroxysmal atrial fibrillation-holding Eliquis per surgeon. Continue with beta-fernando.
# Essential hypertension-under good
# Hyperlipidemia/atherosclerosis-hold statin as n.p.o.
# History of CVA 2018
# History of sleep apnea-not on CPAP. Patient states that it was recalled and he did not explore a new one. Importance of getting back on CPAP discussed with the patient and
# Peripheral vascular disease
# History of prostate cancer with history of radiation treatment ( Sees )
# History of adenocarcinoma of colon status post robotic sigmoidectomy December 2023 and 6 months ( 12 cycles) of FOLFOX chemotherapy finished 08/30/2024
# Diverticulosis
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
# GERD-PPI
# Obesity per BMI 36
# DVT prophylaxis- Add Lovenox
# Full code
Discussed with surgery
Anticipated Discharge: 24 - 48 hours
Subjective/Interval History
-
Date of Service: July 25, 2025
Currently tolerating clear liquids. He might be transition to solid diet today.
Abdominal some bloating sensation but no pain.
Denies any shortness of breath. His weight is 269 pounds and is normally to 60 pounds. Denies any chest pains or palpitations.
Objective Data
-
Labs:
Laboratory Results
07/25/25
07:11
WBC 8.1
Hgb 11.4 L
Hct 35.8 L
Plt Count 152
Sodium 141
Potassium 4.3
Chloride 107
Carbon Dioxide 28
BUN 28 H
Creatinine 1.5 H
Glucose 101 H
Calcium 8.8
Vital Signs:
Vital Signs
Temp Pulse Resp BP Pulse Ox
98.3 F 72 16 108/50 96
07/25/25 07:25 07/25/25 07:25 07/25/25 07:25 07/25/25 07:25 07/25/25 07:25
I&O
07/24/25 07/25/25 07/26/25
06:59 06:59 06:59
Intake Total 3120 / 3120 1660 / 1660
Output Total 2099 / 2099 300 / 300
Balance 1020 / 1020 1360 / 1360
Physical Exam
-
General: Comfortable
Respiratory: Non Labored Respirations and Decreased Breath Sounds (At the bases); Negative Wheezes, Crackles or Accessory Resp Muscle Use
Cardiac: Regular Rhythm and S1/S2; Negative Tachycardic
GI: Soft, Nontender, Nondistended and Normal Bowel Sounds
Musculoskeletal: Negative No Edema
Neuro: AO x 3
Psych: Calm
Data Reviewed
-
Labs: Labs Reviewed by me
[2025-07-25 11:35] VITALS: BP 101/50
[2025-07-25] MEDS: LASIX 40 MG PO (12:26)
--- NOTE | 2025-07-25 14:30 | CM ---
CM following re: discharge planning.
Reviewed pt's chart, met with pt and pt's daughter at bedside.
Pt is POD#4 s/p Robotic right hemicolectomy, lysis of adhesions, mesenteric angiography, laparoscopic TAP block
Pt lives alone in an apartment, has 2 supportive children. 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
D/C plan: home with anticipated no needs. Daughter to transport at discharge.
CM will follow with discharge plan updates as hospitalization progresses
[2025-07-25 15:56] VITALS: BP 122/55
[2025-07-25] MEDS: NSS IV (16:49)
[2025-07-25] MEDS: LOVENOX 40 MG SC (16:58)
[2025-07-25 19:45] VITALS: BP 108/60
[2025-07-25] MEDS: COREG 6.25 MG PO (20:16)
[2025-07-25 23:10] VITALS: BP 117/61
[2025-07-26 06:00] VITALS: BMI 36.3
[2025-07-26] MEDS: TYLENOL PO (06:24)
[2025-07-26 07:35] LABS: Hematocrit 29.9 % (39.0-52.0); Hemoglobin 9.9 g/dL (13.0-18.0); Mean Corp Hgb Conc. 33.1 g/dL (33.0-37.0); Mean Corpuscular Volume 89.5 fL (80.0-94.0); Nucleated Red Blood Cells % 0 % (-); Platelet Count 119 10^3/uL (130-400); Red Cell Dist. Width 15.5 % (11.5-14.5)
[2025-07-26 08:01] VITALS: BP 116/56
[2025-07-26 08:15] LABS: Blood Urea Nitrogen 27 mg/dl (9-20); Calcium 8.5 mg/dl (8.4-10.2); Carbon Dioxide 28 mmol/L (22-30); Chloride 105 mmol/L (98-107); Estimated Creatinine Clearance 58 ml/min; Glucose 93 mg/dl (70-99); Potassium 3.8 mmol/L (3.5-5.1); Sodium 134 mmol/L (135-145); eGFR 48.55
[2025-07-26] MEDS: LASIX 40 MG PO (08:52)
[2025-07-26] MEDS: COREG 6.25 MG PO (08:53)
--- NOTE | 2025-07-26 10:30 | W.PN.HOSP.TC ---
Today's Communication/Plan
-
Okay from medical standpoint for discharge
Assessment / Plan
Assessment / Plan
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
Management per colorectal surgeon
Diet getting advanced.
#Chronic HFrEF, ischemic cardiomyopathy with history of AICD placement ( MRI Conditional) in 2018
Echo 01/20/2025-dilated LV. Mild concentric LVH. Akinesis of the basal to mid inferolateral wall. Abnormal paradoxical septal motion consistent with RV pacemaker. Mildly reduced LV systolic function. EF 40 to 45%. ICD wire in the RV. Mild TR.
PA pressure 30 to 35 mmHg.
Patient without any respiratory symptoms but increased weight gain. Clinically no lower extremity edema no JVD. Decreased breath sounds at bases.
Resumed Lasix. Weight 267. Baseline weight around 260.
Resumed Coreg.
Can restart his Entresto and Farxiga.
Patient advised to get a follow-up BMP in a week through his PCP. He was made aware of his current chronic creatinine elevation.
# Mild hyponatremia-improved
#CKD stage III
Creatinine from some of this year is 1.3-1.5.
Today's creatinine is 1.5.
No hyperkalemia or acidosis.
# Coronary disease history of CABG 2018
Will restart statins once oral intake is adequate.
# Paroxysmal atrial fibrillation-holding Eliquis per surgeon. Continue with beta-fernando.
# Essential hypertension-under good
# Hyperlipidemia/atherosclerosis-hold statin as n.p.o.
# History of CVA 2018
# History of sleep apnea-not on CPAP. Patient states that it was recalled and he did not explore a new one. Importance of getting back on CPAP discussed with the patient and
# Peripheral vascular disease
# History of prostate cancer with history of radiation treatment ( Sees )
# History of adenocarcinoma of colon status post robotic sigmoidectomy December 2023 and 6 months ( 12 cycles) of FOLFOX chemotherapy finished 08/30/2024
# Diverticulosis
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
# GERD-PPI
# Obesity per BMI 36
# DVT prophylaxis- Add Lovenox
# Full code
Medically stable for discharge. Can go back on his home cardiac meds and Eliquis when okay from surgery standpoint.
Discussed with Steph from surgical team.
Anticipated Discharge: Today
Subjective/Interval History
-
Date of Service: July 26, 2025
Now on solid diet which he is tolerating.
Denies shortness of breath, chest pain, palpitations. No dizziness.
Objective Data
-
Labs:
Laboratory Results
07/26/25
06:53
WBC 4.0 L
Hgb 9.9 L
Hct 29.9 L
Plt Count 119 L D
Sodium 134 L
Potassium 3.8
Chloride 105
Carbon Dioxide 28
BUN 27 H
Creatinine 1.5 H
Glucose 93
Calcium 8.5
Vital Signs:
Vital Signs
Temp Pulse Resp BP Pulse Ox
97.9 F 72 14 116/56 97
07/26/25 08:01 07/26/25 08:53 07/26/25 08:01 07/26/25 08:53 07/26/25 08:01
I&O
07/25/25 07/26/25 07/27/25
06:59 06:59 06:59
Intake Total 1660 / 1660
Output Total 300 / 300
Balance 1360 / 1360
Physical Exam
-
General: No Apparent Distress
HEENT: Moist Mucous Membranes
Respiratory: Non Labored Respirations; Negative Wheezes, Crackles or Accessory Resp Muscle Use
GI: Soft, Nondistended and Normal Bowel Sounds
Musculoskeletal: No Edema
Neuro: AO x 3
Psych: Calm; Negative Confused
Data Reviewed
-
Labs: Labs Reviewed by me
--- NOTE | 2025-07-26 10:43 | W.PN.CRS1 ---
Today's Communication / Plan
-
discharge
Assessment/Plan
-
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
his first surveillance colonoscopy from his cancer diagnosis. He presents for elective surgery
POD #4 robotic RHC, TRAY, laparoscopic TAP block
AFVSS
WBC 4.0 (8.1, 9.5, 12.8, 10.0), Hb 9.9 (11.4, 11.5, 11.5, 10.7 from 13.4, CR 1.6 (1.4)
� Continue regular diet
� Pain control with Tylenol, oxycodone and Dilaudid as needed, continue Relistor
� DVT PPx with Lovenox; hold Eliquis for now- start tomorrow
- OR pathology pending
- OOB as tolerated
- Appreciate hospitalist
- Okay for d/c today. Discussed with hospitalist. Follow up with Dr. Kemp in 2 weeks. BMP in 1 week upon discharge.
Subjective Data
Procedure
07/22/2025- Robotic right hemicolectomy, lysis of adhesions, mesenteric angiography, laparoscopic TAP block
Subjective Data
Date of Service: July 26, 2025
Patient states he feels 'okay'. His pain is controlled. Denies nausea or vomiting. He had a bowel movement this morning.
Objective Data
-
Vital Signs
Temp Pulse Resp BP Pulse Ox
97.9 F 72 14 116/56 97
07/26/25 08:01 07/26/25 08:53 07/26/25 08:01 07/26/25 08:53 07/26/25 08:01
Intake & Output
07/25/25 07/26/25 07/27/25
06:59 06:59 06:59
Intake Total 1660 / 1660
Output Total 300 / 300
Balance 1360 / 1360
Intake:
Oral fluids 960 / 960
IV fluids (Total) 700 / 700
Output:
Urine, Voided 300 / 300
Other:
Number of approximated MODERATE 2
amounts of urine
Number of immeasurable emeses? 2
Number of unmeasured liquid
stools
Rectum 2
Lab Results
07/26/25 06:53
07/26/25 06:53
Physical Exam
-
General: No Acute Distress and AOx3
Abdomen: Soft, Non Distended and Non Tender
Skin: Warm and Dry
Incision: Clear, Dry, Intact
--- NOTE | 2025-07-26 10:50 | W.DCSUMMARY ---
Discharge Summary
Discharge Data
Date of Admission: 07/22/25
Date of Discharge: 07/26/25
-
Pending Results: Yes
Additional Pending Results:
pathology
Hospital Course
75-year-old male presented to [facility] for a robotic right colectomy secondary to an ileocecal bowel mass. This was performed by Dr. Hany Kemp on 07/22/2025. The patient tolerated procedure well and was brought back to the medical
surgical floor. The following day his Del Real was discontinued and he voided without difficulty. He was started on a regular diet. Lovenox was started for DVT prophylaxis. On postop day 2 the patient developed abdominal pain and felt distended.
He was back down to clears. On postop day 3 he had several large bowel movements and his pain resolved. He was started back on a regular diet. The hospitalist was on consult and recommended he start his home dose of Lasix. He was kept for 1 more
day for observation and discharged on postop day 4. All discharge instructions were discussed with the patient including medications activity levels and follow-up. All questions addressed. BMP in 1 week through his primary care physician.
Discharge Plan
-
Patient Disposition: Home (Routine Discharge)
Discharge Diagnosis/Procedures: Ileocecal valve mass with robotic hemicolectomy
Diet: Regular
Activity: No strenuous activity
Additional Activity: Do not lift over 10lbs (gallon of milk)
Bathing Restrictions: OK to Shower
Blood Work: BMP in one week. Please call your Primary Care physician today to have this ordered and checked. If you have trouble, please call the colorectal office.
Wound Care: Glue will flake off your incisions on its own over the next 2-3 weeks. Avoid picking or scrubbing off.
Referrals:
Hany Kemp MD [Active, ColoRectal] - in two weeks
Juan Oswald DO [Family Provider, Internal Medicine] - in one week
Additional Discharge Medication Instructions: Tylenol as needed for pain. Maximum dose of Tylenol is 4,000mg in 24 hours.
Restart your Eliquis tomorrow, on 07/27/2025.
Prescriptions:
Continued
furosemide 40 MG tablet
40 mg PO DAILY
atorvastatin 40 MG tablet
40 mg PO QPM
carvedilol 6.25 MG tablet
6.25 mg PO BID
sacubitril-valsartan [Entresto] 49-51 mg Tablet
1 tab PO BID
Jardiance 10 mg Tablet
10 mg PO DAILY
Held
Eliquis 5 mg Tablet
5 mg PO BID
Hold Instructions: Resume on 07/27/25.
Discontinued
metronidazole 500 mg Tablet
500 mg PO PRE OP
neomycin 500 mg Tablet
500 mg PO PRE OP
peg 3350-electrolytes [Golytely] 236-22.74-6.74 -5.86 gram Recon Soln
240 ml PO PRE OP
Discharge Orders:
Discharge Patient (As Directed); Ordered 07/26/25
Ordered By: Steph Panchal
Discharge Date and Time
Print Language: [place]
[2025-07-26 12:37] VITALS: BP 116/56
--- NOTE | 2025-07-26 12:40 | CM ---
Patient seen at bedside on . Patient completed IMM and signed form placed on chart. Patient for discharge home today with family support. CM will continue to follow for discharge planning needs.
Plan; home with no needs.
== END 2025-07-26 13:37 | disposition home or self-care (01) | DRG 330 ==
LOC: 2 SOUTH 06:08
PROVIDERS: Internal Medicine; Physician Assistant; Registered Nurse; ADMITTING PHYSICIAN Surgery; FAMILY PHYSICIAN Internal Medicine; OTHER PHYSICIAN Hospitalist
PROC: 0DTF4ZZ Resection of Right Large Intestine, Percutaneous Endoscopic Approach (ICD-10-PCS; 2025-07-22)
PROC: 8E0W4CZ Robotic Assisted Procedure of Trunk Region, Percutaneous Endoscopic Approach (ICD-10-PCS; 2025-07-22)
PROC: 0DNK4ZZ Release Ascending Colon, Percutaneous Endoscopic Approach (ICD-10-PCS; 2025-07-22)
DX: D13.39 Benign neoplasm of other parts of small intestine (principal); E87.1 Hypo-osmolality and hyponatremia; I13.0 Hypertensive heart and chronic kidney disease with heart failure and stage 1 through stage 4 chronic kidney disease, or unspecified chronic kidney disease; I50.22 Chronic systolic (congestive) heart failure; N17.9 Acute kidney failure, unspecified; N18.30 Chronic kidney disease, stage 3 unspecified; E78.5 Hyperlipidemia, unspecified; I48.0 Paroxysmal atrial fibrillation; I73.9 Peripheral vascular disease, unspecified; K21.9 Gastro-esophageal reflux disease without esophagitis; R91.1 Solitary pulmonary nodule; I25.10 Atherosclerotic heart disease of native coronary artery without angina pectoris; G47.30 Sleep apnea, unspecified; I25.5 Ischemic cardiomyopathy; K57.30 Diverticulosis of large intestine without perforation or abscess without bleeding; K40.20 Bilateral inguinal hernia, without obstruction or gangrene, not specified as recurrent; K42.9 Umbilical hernia without obstruction or gangrene; E66.9 Obesity, unspecified; K76.0 Fatty (change of) liver, not elsewhere classified; G62.0 Drug-induced polyneuropathy; T45.1X5A Adverse effect of antineoplastic and immunosuppressive drugs, initial encounter; Y92.9 Unspecified place or not applicable; Z60.2 Problems related to living alone; I25.2 Old myocardial infarction; Z68.36 Body mass index [BMI] 36.0-36.9, adult; Z85.038 Personal history of other malignant neoplasm of large intestine; Z95.810 Presence of automatic (implantable) cardiac defibrillator; Z80.0 Family history of malignant neoplasm of digestive organs; Z83.6 Family history of other diseases of the respiratory system; Z79.01 Long term (current) use of anticoagulants; Z79.84 Long term (current) use of oral hypoglycemic drugs; Z95.1 Presence of aortocoronary bypass graft; Z86.73 Personal history of transient ischemic attack (TIA), and cerebral infarction without residual deficits; Z85.46 Personal history of malignant neoplasm of prostate; Z92.3 Personal history of irradiation; Z90.49 Acquired absence of other specified parts of digestive tract; Z92.21 Personal history of antineoplastic chemotherapy
CPT/HCPCS: 36415; 71046; 74019; 80048; 80053; 82378; 82962; 83036; 83735; 85025; 85027; 85610; 85730; 86850; 86900; 86901; 88309; 93005